=== PATIENT | female | born 1960 | race African-American/Black ===

== ENCOUNTER 2019-07-20 15:21 | Inpatient (IN) | payer MEDICARE, MEDICAID ==
[~2019-07-20] VITALS: Ht 165.1 cm; Wt 56.7 kg
[2019-07-20] MEDS ORDERED: PANTOPRAZOLE SODIUM 40 MG/VIAL IV STA (16:20)
[2019-07-20 18:30] LABS: BASOPHILS % 0.5 % (0.0-2.0); EOSINOPHILS % 0.6 % (0.0-5.0); HEMATOCRIT. 25.5 % (36.0-48.0); HEMOGLOBIN. 8.3 g/dL (12.0-16.0); LYMPHOCYTES % 14.7 % (20.0-50.0); MEAN CORPUSCULAR HEMOGLOBIN 30.1 pg (28.0-32.0); MEAN CORPUSCULAR VOLUME 93.2 fL (81.0-99.0); MEAN PLATELET VOLUME 8.2 fl (7.4-10.4); MONOCYTES % 7.1 % (2.0-8.0); NEUTROPHILS % 77.1 % (40.0-76.0); PLATELET 414 x1000/uL (130-400); RED BLOOD CELL COUNT 2.74 mill/uL (4.2-5.4); RED CELL DISTRIBUTION WIDTH 19.6 % (11.6-14.6)
[2019-07-20] MEDS ORDERED: HYDRALAZINE 20MG/ML VIAL IV ONE (18:30)
[2019-07-20 18:36] LABS: CHLORIDE 99 mEq/L (98-107); PROTHROMBIN TIME 10.5 sec (9.6-11.0)
[2019-07-20] MEDS ORDERED: ACETAMINOPHEN 325MG TABLET PO PRN (19:00)
[2019-07-20] MEDS ORDERED: DOCUSATE SODIUM 100MG CAPSULE PO PRN (19:00)
[2019-07-20] MEDS ORDERED: MAGNESIUM/ALUMINUM HYDROXIDE/SIMETHICONE 30ML UDC PO PRN (19:00)
[2019-07-20] MEDS ORDERED: ONDANSETRON HCL 4MG/2ML INJ IV PRN (19:00)
[2019-07-20] MEDS ORDERED: ZOLPIDEM TARTRATE 5MG TABLET PO PRN (19:00)
[2019-07-20] MEDS ORDERED: NITROGLYCERIN 0.4MG TABLET SL SL PRN (19:00)
[2019-07-20] MEDS ORDERED: IPRATROPIUM/ALBUTEROL 0.5-3(2.5)MG/3ML NEB NEB PRN (19:00)
[2019-07-20] MEDS ORDERED: LORAZEPAM 0.5MG TABLET PO PRN (19:00)
[2019-07-20] MEDS ORDERED: GUAIFENESIN 200MG/10ML SUGAR FREE UDC PO PRN (19:00)
[2019-07-20] MEDS ORDERED: TRAMADOL 50MG TABLET PO PRN (19:00)
[2019-07-20] MEDS ORDERED: DIPHENHYDRAMINE 50MG/ML VIAL IV PRN (19:00)
[2019-07-20] MEDS ORDERED: DEXTROSE 50% WATER 50ML SYRINGE IV PRN (19:00)
[2019-07-20 20:17] LABS: FOLIC ACID (FOLATE) SERUM 9.9 ng/mL (>5.38)
[2019-07-20] MEDS ORDERED: CLONIDINE 0.2MG TABLET PO PRN (20:30)
[2019-07-20] MEDS: PANTOPRAZOLE SODIUM 40 MG/VIAL IV SCH (20:56)
[2019-07-20] MEDS: METOPROLOL TARTRATE 25MG TABLET PO SCH (20:57)
[2019-07-20] MEDS: AMLODIPINE 10MG TABLET PO SCH (20:58)
[2019-07-20] MEDS: INSULIN LISPRO 100 UNITS/ML SUBCUT SCH (21:00)
[2019-07-20] MEDS: BLOOD SUGAR DIAGNOSTIC STRIP TEST SCH (21:00)
[2019-07-20 23:10] VITALS: BP 175/80
[2019-07-20 23:52] VITALS: BP 175/80
[2019-07-21] MEDS ORDERED: SEVE800T8 PO (00:21)
[2019-07-21] MEDS ORDERED: TRAM50TA3 PO (00:21)
[2019-07-21] MEDS ORDERED: LISI10TA5 PO (00:21)
[2019-07-21] MEDS ORDERED: AMLO10TA4 PO (00:21)
[2019-07-21] MEDS ORDERED: OMEP20TA2 PO (00:21)
[2019-07-21] MEDS: LISINOPRIL 20MG TABLET PO SCH ×3 (00:36→22:59)
[2019-07-21] MEDS: HYDRALAZINE HCL 50MG TABLET PO SCH ×4 (00:36→23:00)
[2019-07-21 04:00] VITALS: BP 120/64
[2019-07-21] MEDS: BLOOD SUGAR DIAGNOSTIC STRIP TEST SCH ×4 (05:47→23:00)
[2019-07-21 08:00] VITALS: BP 139/73
[2019-07-21] MEDS: INSULIN LISPRO 100 UNITS/ML SUBCUT SCH ×4 (08:10→23:07)
[2019-07-21] MEDS: SEVELAMER CARBONATE 800 MG TABLET PO SCH ×3 (08:19→17:50)
[2019-07-21] MEDS: FOLIC ACID/VITAMIN B COMP W-C TABLET PO SCH (08:20)
[2019-07-21] MEDS: AMLODIPINE 10MG TABLET PO SCH (08:20)
[2019-07-21] MEDS: METOPROLOL TARTRATE 25MG TABLET PO SCH ×2 (08:20→23:00)
[2019-07-21] MEDS: PANTOPRAZOLE SODIUM 40 MG/VIAL IV SCH ×2 (08:21→23:15)
[2019-07-21 11:50] VITALS: BP 131/85
[2019-07-21] MEDS: DOCUSATE SODIUM 100MG CAPSULE PO SCH (12:09)
[2019-07-21 16:00] VITALS: BP 132/68
[2019-07-21 20:00] VITALS: BP 142/66
[2019-07-21] MEDS ORDERED: EPOETIN ALFA 10000UNITS/ML VIAL SUBCUT SCH (21:00)
[2019-07-22] VITALS: BP 136/68
[2019-07-22 04:00] VITALS: BP 138/59
[2019-07-22 06:53] LABS: BASOPHILS % 0.4 % (0.0-2.0); EOSINOPHILS % 0.2 % (0.0-5.0); HEMATOCRIT. 23.7 % (36.0-48.0); HEMOGLOBIN. 7.7 g/dL (12.0-16.0); LYMPHOCYTES % 14.5 % (20.0-50.0); MEAN CORPUSCULAR HEMOGLOBIN 30.1 pg (28.0-32.0); MEAN CORPUSCULAR VOLUME 92.6 fL (81.0-99.0); MEAN PLATELET VOLUME 7.9 fl (7.4-10.4); MONOCYTES % 10.3 % (2.0-8.0); NEUTROPHILS % 74.6 % (40.0-76.0); PLATELET 402 x1000/uL (130-400); RED BLOOD CELL COUNT 2.56 mill/uL (4.2-5.4); RED CELL DISTRIBUTION WIDTH 19.7 % (11.6-14.6)
[2019-07-22] MEDS: BLOOD SUGAR DIAGNOSTIC STRIP TEST SCH ×3 (07:01→17:40)
[2019-07-22] MEDS: HYDRALAZINE HCL 50MG TABLET PO SCH ×2 (07:01→14:42)
[2019-07-22] MEDS: INSULIN LISPRO 100 UNITS/ML SUBCUT SCH ×3 (07:04→18:10)
[2019-07-22 07:05] LABS: PHOSPHORUS 3.7 mg/dL (2.5-4.9)
[2019-07-22] MEDS: LISINOPRIL 20MG TABLET PO SCH (08:34)
[2019-07-22] MEDS: FOLIC ACID/VITAMIN B COMP W-C TABLET PO SCH (08:34)
[2019-07-22] MEDS: DOCUSATE SODIUM 100MG CAPSULE PO SCH (08:34)
[2019-07-22] MEDS: PANTOPRAZOLE SODIUM 40 MG/VIAL IV SCH (08:34)
[2019-07-22] MEDS: METOPROLOL TARTRATE 25MG TABLET PO SCH (08:35)
[2019-07-22] MEDS: AMLODIPINE 10MG TABLET PO SCH (08:35)
[2019-07-22] MEDS: SEVELAMER CARBONATE 800 MG TABLET PO SCH ×3 (08:36→18:10)
[2019-07-22] MEDS ORDERED: DIATR MEGLU/DIATRIZOATE SOLN 30ML PO SCH (13:15)
[2019-07-22] MEDS ORDERED: POTASSIUM CHLORIDE INJ 40 MEQ in DEXT 5% WATER 250 ML IV NR (14:30)
[2019-07-22] MEDS ORDERED: LOSARTAN POTASSIUM 50 MG TABLET PO SCH (15:00)
[2019-07-22] MEDS ORDERED: HYDROCODONE/ACETAMINOPHEN 5/325MG TABLET PO PRN (15:15)
[2019-07-22] MEDS ORDERED: DIATR MEGLU/DIATRIZOATE SOLN 30ML PO NR (16:00)
[2019-07-22] MEDS ORDERED: FERROUS SULFATE 325MG TABLET PO SCH (18:10)
[2019-07-22] MEDS ORDERED: LISI-604 MT (18:16)
[2019-07-22] MEDS ORDERED: CLON0.2T MT (18:16)
[2019-07-22] MEDS ORDERED: FERR-71 MT (18:16)
[2019-07-22] MEDS ORDERED: LOSA25TA26 MT (18:16)
[2019-07-22] MEDS ORDERED: ATOR10TA MT (18:18)
[2019-07-22] MEDS ORDERED: POTASSIUM CHLORIDE 20MEQ TABLET SR PO NR (18:30)
[2019-07-22 20:38] VITALS: BP 142/85
== END 2019-07-22 20:48 | disposition home or self-care (01) | DRG 377 ==
LOC: ER 15:21 → SUPCPDRO 18:56 → ENRESERV 21:10 → 7WST 23:20 → EDBD 23:20
PROVIDERS: ADMIT Internal Medicine; ATTEND Internal Medicine
PROC: 5A1D70Z Performance of Urinary Filtration, Intermittent, Less than 6 Hours Per Day (ICD-10-PCS; principal; 2019-07-21)
DX: K92.2 Gastrointestinal hemorrhage, unspecified (principal); N18.6 End stage renal disease; E87.1 Hypo-osmolality and hyponatremia; E44.0 Moderate protein-calorie malnutrition; I12.0 Hypertensive chronic kidney disease with stage 5 chronic kidney disease or end stage renal disease; N25.81 Secondary hyperparathyroidism of renal origin; R18.8 Other ascites; K59.00 Constipation, unspecified; E78.5 Hyperlipidemia, unspecified; N32.89 Other specified disorders of bladder; E11.36 Type 2 diabetes mellitus with diabetic cataract; D25.9 Leiomyoma of uterus, unspecified; D63.8 Anemia in other chronic diseases classified elsewhere; E11.22 Type 2 diabetes mellitus with diabetic chronic kidney disease; Z53.20 Procedure and treatment not carried out because of patient's decision for unspecified reasons; Z83.3 Family history of diabetes mellitus; Z82.49 Family history of ischemic heart disease and other diseases of the circulatory system; Z79.4 Long term (current) use of insulin; Z79.899 Other long term (current) drug therapy; Z91.19 Patient's noncompliance with other medical treatment and regimen; Z99.2 Dependence on renal dialysis; Z72.89 Other problems related to lifestyle; Z68.20 Body mass index [BMI] 20.0-20.9, adult
CPT/HCPCS: 36415; 71045; 74018; 74176; 80048; 80053; 80061; 82607; 82728; 82746; 82962; 83036; 83540; 83550; 83735; 83880; 84100; 84484; 85025; 86850; 86870; 86900; 93005; 93306; 93970; 99285; C9113; J0360; J0885; J1815; J2405; J3480; J7060; Q9963

== ENCOUNTER 2019-09-08 00:49 | Inpatient (IN) | payer MEDICARE, MEDICAID ==
[~2019-09-08] VITALS: Ht 165.1 cm; Wt 56.2 kg
[~2019-09-08 00:49] MED LIST: AMLO10TA4 PO; ATOR10TA MT; CLON0.2T MT; FERR-71 MT; LISI-604 MT; LOSA25TA26 MT; OMEP20TA2 PO; SEVE800T8 PO; TRAM50TA3 PO
[2019-09-08 02:11] LABS: HEMATOCRIT. 26.3 % (36.0-48.0); HEMOGLOBIN. 8.7 g/dL (12.0-16.0); MEAN CORPUSCULAR HEMOGLOBIN 30.6 pg (28.0-32.0); MEAN CORPUSCULAR VOLUME 92.2 fL (81.0-99.0); PLATELET 258 x1000/uL (130-400); RED BLOOD CELL COUNT 2.85 mill/uL (4.2-5.4); RED CELL DISTRIBUTION WIDTH 17.1 % (11.6-14.6)
[2019-09-08 02:17] LABS: CHLORIDE 106 mEq/L (98-107)
[2019-09-08 02:51] LABS: PLATELET ESTIMATE NORMAL
[2019-09-08 04:03] LABS: CLARITY URINE CLEAR (CLEAR); COLOR URINE YELLOW (YELLOW); KETONES URINE NEGATIVE (NEGATIVE); LEUKOCYTE ESTERASE URINE NEGATIVE (NEGATIVE); NITRITE URINE NEGATIVE (NEGATIVE); OCCULT BLOOD URINE TRACE (NEGATIVE); PH URINE >=9.0 (4.5-8.0); PROTEIN URINE 2+ (NEGATIVE); SPECIFIC GRAVITY URINE 1.012 (1.005-1.030); UROBILINOGEN URINE 0.2 E.U./dL (0.2-1.0)
[2019-09-08 08:30] VITALS: BP_SYST 196; BP_DIAS 100; BP_DIAS 110
[2019-09-08] MEDS ORDERED: GUAIFENESIN 200MG/10ML SUGAR FREE UDC PO PRN (09:30)
[2019-09-08] MEDS ORDERED: ONDANSETRON HCL 4MG/2ML INJ IV PRN (09:30)
[2019-09-08] MEDS ORDERED: MAGNESIUM/ALUMINUM HYDROXIDE/SIMETHICONE 30ML UDC PO PRN (09:30)
[2019-09-08] MEDS ORDERED: IPRATROPIUM/ALBUTEROL 0.5-3(2.5)MG/3ML NEB NEB PRN (09:30)
[2019-09-08] MEDS ORDERED: CLONIDINE 0.1MG TABLET PO PRN (09:30)
[2019-09-08] MEDS ORDERED: TRAMADOL 50MG TABLET PO PRN (09:30)
[2019-09-08] MEDS ORDERED: DOCUSATE SODIUM 100MG CAPSULE PO PRN (09:30)
[2019-09-08] MEDS ORDERED: NITROGLYCERIN 0.4MG TABLET SL SL PRN (09:30)
[2019-09-08] MEDS ORDERED: ENOXAPARIN 40MG/0.4ML SYR SUBCUT SCH (09:30)
[2019-09-08] MEDS ORDERED: ACETAMINOPHEN 325MG TABLET PO PRN ×2 (09:30)
[2019-09-08] MEDS ORDERED: DIPHENHYDRAMINE 50MG/ML VIAL IV PRN (09:30)
[2019-09-08] MEDS ORDERED: ZOLPIDEM TARTRATE 5MG TABLET PO PRN ×2 (09:30→21:00)
[2019-09-08] MEDS ORDERED: AMLODIPINE 10MG TABLET PO SCH (10:00)
[2019-09-08] MEDS: ASPIRIN 325MG EC TABLET PO SCH (10:35)
[2019-09-08] MEDS: ENOXAPARIN 30MG/0.3ML SYR SUBCUT SCH (10:36)
[2019-09-08 12:19] VITALS: BP 156/84
[2019-09-08] MEDS ORDERED: SEVELAMER CARBONATE 800 MG TABLET PO SCH (12:50)
[2019-09-08] MEDS ORDERED: HYDRALAZINE HCL 50MG TABLET PO SCH (14:00)
[2019-09-08] MEDS: CLONIDINE 0.2MG TABLET PO SCH ×2 (14:00→20:50)
[2019-09-08] MEDS ORDERED: CLONIDINE 0.3MG TABLET PO SCH (14:00)
[2019-09-08 16:06] VITALS: BP 159/85
[2019-09-08 16:09] LABS: CREATINE KINASE MB FRACTION 3.2 ng/mL (0.5-3.6)
[2019-09-08 20:46] VITALS: BP 161/79
[2019-09-08] MEDS ORDERED: NIFEDIPINE XL 60MG TAB PO SCH (21:00)
[2019-09-08] MEDS ORDERED: FAMOTIDINE 20MG TABLET PO SCH (21:00)
[2019-09-08] MEDS ORDERED: LISINOPRIL 20MG TABLET PO SCH (21:00)
[2019-09-08] MEDS ORDERED: METOPROLOL TARTRATE 25MG TABLET PO SCH (21:00)
[2019-09-09] VITALS (7 sets, daily range): BP systolic 132–162; BP diastolic 68–86
[2019-09-09 00:34] LABS: CREATINE KINASE MB FRACTION 2.5 ng/mL (0.5-3.6)
[2019-09-09] MEDS: CLONIDINE 0.2MG TABLET PO SCH ×2 (05:45→14:00)
[2019-09-09 07:11] LABS: BASOPHILS % 0.6 % (0.0-2.0); EOSINOPHILS % 0.1 % (0.0-5.0); HEMATOCRIT. 24.7 % (36.0-48.0); HEMOGLOBIN. 8.3 g/dL (12.0-16.0); LYMPHOCYTES % 17.4 % (20.0-50.0); MEAN CORPUSCULAR HEMOGLOBIN 31.1 pg (28.0-32.0); MEAN CORPUSCULAR VOLUME 92.7 fL (81.0-99.0); MEAN PLATELET VOLUME 8.8 fl (7.4-10.4); MONOCYTES % 8.8 % (2.0-8.0); NEUTROPHILS % 73.1 % (40.0-76.0); PLATELET 283 x1000/uL (130-400); RED BLOOD CELL COUNT 2.66 mill/uL (4.2-5.4); RED CELL DISTRIBUTION WIDTH 16.5 % (11.6-14.6)
[2019-09-09 08:14] LABS: PHOSPHORUS 3.1 mg/dL (2.5-4.9)
[2019-09-09] MEDS: ASPIRIN 325MG EC TABLET PO SCH (09:34)
[2019-09-09] MEDS: ENOXAPARIN 30MG/0.3ML SYR SUBCUT SCH (09:35)
[2019-09-09 16:28] LABS: BG BASE EXCESS -0.3 mmol/L (-2.0-2.0); BG CARBOXYHEMOGLOBIN 0.3 % (0.5-1.5); BG DEOXYHEMOGLOBIN 7.9 % (0.0-5.0); BG HCO3 ACT 22.6 mmol/L (22.0-26.0); BG METHEMOGLOBIN 0.3 % (0.0-1.5); BG OXYGEN SATURATION 92.1 % (92.0-98.5); BG OXYHEMOGLOBIN 91.5 % (94.0-97.0); BG PCO2 30.5 mmHg (35.0-45.0); BG PH 7.488 (7.350-7.450); BG SAMPLE SITE RIGHT RADIAL; BG TOTAL HEMOGLOBIN 9.2 g/dL (12.0-18.0); BG VENT MODE ROOM AIR
== END 2019-09-09 19:00 | disposition home or self-care (01) | DRG 291 ==
LOC: ER 01:08 → 6WST 06:52 → ENRESERV 07:38 → CANRESERV 07:38 → ENRESERV 08:05
PROVIDERS: ADMIT Internal Medicine; ATTEND Internal Medicine
PROC: 5A1D70Z Performance of Urinary Filtration, Intermittent, Less than 6 Hours Per Day (ICD-10-PCS; principal; 2019-09-08)
PROC: 5A1D70Z Performance of Urinary Filtration, Intermittent, Less than 6 Hours Per Day (ICD-10-PCS; 2019-09-09)
DX: I13.2 Hypertensive heart and chronic kidney disease with heart failure and with stage 5 chronic kidney disease, or end stage renal disease (principal); J96.00 Acute respiratory failure, unspecified whether with hypoxia or hypercapnia; N18.6 End stage renal disease; I50.33 Acute on chronic diastolic (congestive) heart failure; D25.9 Leiomyoma of uterus, unspecified; E11.22 Type 2 diabetes mellitus with diabetic chronic kidney disease; F10.10 Alcohol abuse, uncomplicated; F17.210 Nicotine dependence, cigarettes, uncomplicated; J44.9 Chronic obstructive pulmonary disease, unspecified; F32.9 Major depressive disorder, single episode, unspecified; K21.9 Gastro-esophageal reflux disease without esophagitis; Z82.49 Family history of ischemic heart disease and other diseases of the circulatory system; Y90.9 Presence of alcohol in blood, level not specified; Z91.15 Patient's noncompliance with renal dialysis; Z83.3 Family history of diabetes mellitus; Z91.14 Patient's other noncompliance with medication regimen; Z99.2 Dependence on renal dialysis; Z79.1 Long term (current) use of non-steroidal anti-inflammatories (NSAID); Z79.82 Long term (current) use of aspirin; Z79.01 Long term (current) use of anticoagulants; Z79.899 Other long term (current) drug therapy; Z71.6 Tobacco abuse counseling
CPT/HCPCS: 36415; 36600; 71045; 80048; 80053; 80307; 81003; 82375; 82550; 82553; 82805; 83036; 84100; 84484; 85025; 93005; 93970; 99285; J1650

== ENCOUNTER 2019-09-22 07:18 | Inpatient (IN) | payer MEDICARE, MEDICAID ==
[~2019-09-22] VITALS: Ht 170.2 cm; Wt 54.0 kg
[2019-09-22] MEDS ORDERED: ALBUTEROL (0.083%) 2.5MG/3ML NEB HHN STA (07:44)
[2019-09-22] MEDS ORDERED: METHYLPREDNISOLONE SOD SUCC 125 MG/2 ML VIAL IV STA (07:44)
[2019-09-22] MEDS ORDERED: NITROGLYCERIN 0.4MG TABLET SL SL PRN (07:45)
[2019-09-22 08:47] LABS: MEAN CORPUSCULAR HEMOGLOBIN 29.5 pg (28.0-32.0); MEAN CORPUSCULAR VOLUME 94.8 fL (81.0-99.0); MEAN PLATELET VOLUME 8.5 fl (7.4-10.4); PLATELET 296 x1000/uL (130-400); RED BLOOD CELL COUNT 2.22 mill/uL (4.2-5.4); RED CELL DISTRIBUTION WIDTH 17.4 % (11.6-14.6)
[2019-09-22 08:55] LABS: HEMOGLOBIN. 6.6 g/dL (12.0-16.0)
[2019-09-22 09:38] LABS: CHLORIDE 120 mEq/L (98-107)
[2019-09-22 09:56] LABS: PLATELET ESTIMATE NORMAL
[2019-09-22] MEDS ORDERED: INSULIN REGULAR (HUMULIN R) 300UNITS/3ML IV ONE (11:15)
[2019-09-22] MEDS ORDERED: DEXTROSE 50% WATER 50ML SYRINGE IV ONE (11:15)
[2019-09-22] MEDS ORDERED: CALCIUM GLUCONATE 1,000 MG in DEXT 5% WATER 100 ML IV ONE (11:15)
[2019-09-22] MEDS ORDERED: SODIUM POLYSTYRENE SULFONATE 15 G/60 ML BOT PO ONE (11:15)
[2019-09-22 14:30] VITALS: BP 87/55
[2019-09-22 15:30] VITALS: BP 87/55
[2019-09-22] MEDS ORDERED: ACETAMINOPHEN 325MG TABLET PO PRN (16:30)
[2019-09-22] MEDS ORDERED: ONDANSETRON HCL 4MG/2ML INJ IV PRN (16:30)
[2019-09-22] MEDS ORDERED: IPRATROPIUM/ALBUTEROL 0.5-3(2.5)MG/3ML NEB HHN PRN (16:30)
[2019-09-22] MEDS ORDERED: ENOXAPARIN 40MG/0.4ML SYR SUBCUT SCH (16:30)
[2019-09-22 20:00] VITALS: BP 161/89
[2019-09-22] MEDS: EPOETIN ALFA 10000UNITS/ML VIAL SUBCUT SCH (21:21)
[2019-09-23] VITALS (8 sets, daily range): BP systolic 123–177; BP diastolic 63–90
[2019-09-23 00:08] LABS: BASOPHILS % 0.3 % (0.0-2.0); MEAN CORPUSCULAR HEMOGLOBIN 31.1 pg (28.0-32.0); MEAN CORPUSCULAR VOLUME 93.5 fL (81.0-99.0); MEAN PLATELET VOLUME 8.6 fl (7.4-10.4); NEUTROPHILS % 83.7 % (40.0-76.0); PLATELET 266 x1000/uL (130-400); RED BLOOD CELL COUNT 2.23 mill/uL (4.2-5.4); RED CELL DISTRIBUTION WIDTH 16.5 % (11.6-14.6)
[2019-09-23 00:21] LABS: HEMATOCRIT. 20.8 % (36.0-48.0); HEMOGLOBIN. 6.9 g/dL (12.0-16.0)
[2019-09-23] MEDS ORDERED: DEXTROSE 50% WATER 50ML SYRINGE IV PRN (06:00)
[2019-09-23] MEDS: INSULIN LISPRO 100 UNITS/ML SUBCUT SCH ×3 (06:50→21:00)
[2019-09-23] MEDS: BLOOD SUGAR DIAGNOSTIC STRIP TEST SCH ×3 (06:50→21:14)
[2019-09-23 07:26] LABS: HEMATOCRIT. 25.9 % (36.0-48.0); HEMOGLOBIN. 8.9 g/dL (12.0-16.0); MEAN CORPUSCULAR HEMOGLOBIN 31.1 pg (28.0-32.0); MEAN PLATELET VOLUME 8.6 fl (7.4-10.4); PLATELET 269 x1000/uL (130-400); RED BLOOD CELL COUNT 2.88 mill/uL (4.2-5.4); RED CELL DISTRIBUTION WIDTH 15.8 % (11.6-14.6)
[2019-09-23 07:41] LABS: CHLORIDE 113 mEq/L (98-107)
[2019-09-23 07:53] LABS: LDL CHOLESTEROL 87 mg/dL (5-100)
[2019-09-23 07:54] LABS: HDL CHOLESTEROL 83 mg/dL (40-59); T4 FREE 0.99 ng/dL (0.76-1.46)
[2019-09-23 10:46] LABS: PLATELET ESTIMATE NORMAL
[2019-09-23] MEDS ORDERED: POTASSIUM CHLORIDE 20MEQ/PACKET PO SCH (15:00)
[2019-09-23] MEDS: HYDROCODONE/ACETAMINOPHEN 5/325MG TABLET PO PRN (22:45)
[2019-09-23] MEDS: DIPHENHYDRAMINE 25MG CAPSULE PO PRN (22:49)
[2019-09-24] VITALS: BP 133/88
[2019-09-24 04:00] VITALS: BP 140/71
[2019-09-24] MEDS: BLOOD SUGAR DIAGNOSTIC STRIP TEST SCH ×4 (06:11→21:02)
[2019-09-24] MEDS: INSULIN LISPRO 100 UNITS/ML SUBCUT SCH ×4 (06:16→21:01)
[2019-09-24 06:39] LABS: BASOPHILS % 0.1 % (0.0-2.0); EOSINOPHILS % 0.1 % (0.0-5.0); HEMATOCRIT. 28.1 % (36.0-48.0); HEMOGLOBIN. 9.4 g/dL (12.0-16.0); LYMPHOCYTES % 8.9 % (20.0-50.0); MEAN CORPUSCULAR HEMOGLOBIN 30.4 pg (28.0-32.0); MEAN CORPUSCULAR VOLUME 90.9 fL (81.0-99.0); MEAN PLATELET VOLUME 8.7 fl (7.4-10.4); MONOCYTES % 6.6 % (2.0-8.0); NEUTROPHILS % 84.3 % (40.0-76.0); PLATELET 252 x1000/uL (130-400); RED BLOOD CELL COUNT 3.09 mill/uL (4.2-5.4); RED CELL DISTRIBUTION WIDTH 16.2 % (11.6-14.6)
[2019-09-24 08:00] VITALS: BP 149/73
[2019-09-24] MEDS ORDERED: POTASSIUM CHLORIDE 20MEQ/PACKET PO SCH (10:15)
[2019-09-24 12:00] VITALS: BP 159/81
[2019-09-24 16:00] VITALS: BP 170/79
[2019-09-24 20:00] VITALS: BP 165/86
[2019-09-24] MEDS: HYDROCODONE/ACETAMINOPHEN 5/325MG TABLET PO PRN (20:46)
[2019-09-24] MEDS: DIPHENHYDRAMINE 25MG CAPSULE PO PRN (21:01)
[2019-09-24] MEDS: CLONIDINE 0.1MG TABLET PO PRN (21:02)
[2019-09-25] VITALS: BP 142/79
[2019-09-25 04:00] VITALS: BP 139/75
[2019-09-25] MEDS: INSULIN LISPRO 100 UNITS/ML SUBCUT SCH ×4 (05:42→21:00)
[2019-09-25] MEDS: BLOOD SUGAR DIAGNOSTIC STRIP TEST SCH ×4 (05:42→21:00)
[2019-09-25 06:42] LABS: BASOPHILS % 0.3 % (0.0-2.0); EOSINOPHILS % 0.2 % (0.0-5.0); HEMATOCRIT. 25.2 % (36.0-48.0); HEMOGLOBIN. 8.4 g/dL (12.0-16.0); LYMPHOCYTES % 11.7 % (20.0-50.0); MEAN CORPUSCULAR HEMOGLOBIN 30.8 pg (28.0-32.0); MEAN CORPUSCULAR VOLUME 92.2 fL (81.0-99.0); MEAN PLATELET VOLUME 8.6 fl (7.4-10.4); MONOCYTES % 9.8 % (2.0-8.0); PLATELET 223 x1000/uL (130-400); RED BLOOD CELL COUNT 2.73 mill/uL (4.2-5.4); RED CELL DISTRIBUTION WIDTH 16.4 % (11.6-14.6)
[2019-09-25 08:30] VITALS: BP 158/68
[2019-09-25] MEDS ORDERED: LACTULOSE 20G/30ML UDC PO NR (11:45)
[2019-09-25] MEDS ORDERED: POTASSIUM CHLORIDE 20MEQ TABLET SR PO NR (11:45)
[2019-09-25 12:30] VITALS: BP 175/88
[2019-09-25] MEDS: CLONIDINE 0.1MG TABLET PO PRN (12:57)
[2019-09-25 14:51] LABS: TOTAL IRON BINDING CAPACITY 225 ug/dL (250-450)
[2019-09-25 16:23] LABS: HEMATOCRIT 26.7 % (36.0-48.0); HEMOGLOBIN 8.6 g/dL (12.0-16.0)
[2019-09-25 16:27] LABS: BG BASE EXCESS -3.1 mmol/L (-2.0-2.0); BG CARBOXYHEMOGLOBIN 0.3 % (0.5-1.5); BG DEOXYHEMOGLOBIN 7.7 % (0.0-5.0); BG FRACTION INSPIRED OXYGEN 21; BG HCO3 ACT 20.3 mmol/L (22.0-26.0); BG METHEMOGLOBIN 0.3 % (0.0-1.5); BG OXYGEN SATURATION 92.3 % (92.0-98.5); BG OXYHEMOGLOBIN 91.7 % (94.0-97.0); BG PCO2 29.7 mmHg (35.0-45.0); BG PH 7.452 (7.350-7.450); BG PO2 63.3 mmHg (75.0-100.0); BG SAMPLE SITE RIGHT BRACHIAL; BG TOTAL HEMOGLOBIN 8.4 g/dL (12.0-18.0); BG VENT MODE ROOM AIR
[2019-09-25 20:00] VITALS: BP 169/91
[2019-09-25] MEDS: PANTOPRAZOLE SODIUM 40 MG/VIAL IV SCH (21:51)
[2019-09-25] MEDS: EPOETIN ALFA 10000UNITS/ML VIAL SUBCUT SCH (21:52)
[2019-09-26] VITALS (7 sets, daily range): BP systolic 143–193; BP diastolic 79–115
[2019-09-26 06:44] LABS: PARTIAL THROMBOPLASTIN TIME 28.6 sec (23.4-31.0); PROTHROMBIN TIME 10.5 sec (9.6-11.0)
[2019-09-26 06:47] LABS: BASOPHILS % 0.5 % (0.0-2.0); EOSINOPHILS % 0.2 % (0.0-5.0); HEMATOCRIT. 25.2 % (36.0-48.0); HEMOGLOBIN. 8.2 g/dL (12.0-16.0); LYMPHOCYTES % 8.3 % (20.0-50.0); MEAN CORPUSCULAR HEMOGLOBIN 30.2 pg (28.0-32.0); MEAN CORPUSCULAR VOLUME 92.5 fL (81.0-99.0); MEAN PLATELET VOLUME 8.8 fl (7.4-10.4); PLATELET 217 x1000/uL (130-400); RED BLOOD CELL COUNT 2.73 mill/uL (4.2-5.4); RED CELL DISTRIBUTION WIDTH 16.1 % (11.6-14.6)
[2019-09-26] MEDS: PANTOPRAZOLE SODIUM 40 MG/VIAL IV SCH ×2 (08:08→21:40)
[2019-09-26] MEDS: INSULIN LISPRO 100 UNITS/ML SUBCUT SCH ×4 (08:10→21:40)
[2019-09-26] MEDS: BLOOD SUGAR DIAGNOSTIC STRIP TEST SCH ×4 (08:17→21:40)
[2019-09-26 08:37] LABS: HEPATITIS A AB IGM NEGATIVE (NEGATIVE)
[2019-09-26 08:58] LABS: HEPATITIS B SURFACE ANTIGEN NEGATIVE
[2019-09-26] MEDS ORDERED: FERR325T23 MT (11:50)
[2019-09-26] MEDS ORDERED: OMEP20CA14 MT (11:50)
[2019-09-26] MEDS: HYDRALAZINE 20MG/ML VIAL IV PRN (16:27)
[2019-09-26] MEDS: DIPHENHYDRAMINE 25MG CAPSULE PO PRN (23:51)
[2019-09-27] VITALS: BP 168/71
[2019-09-27 04:00] VITALS: BP 182/90
[2019-09-27] MEDS: BLOOD SUGAR DIAGNOSTIC STRIP TEST SCH ×2 (07:04→12:39)
[2019-09-27] MEDS: INSULIN LISPRO 100 UNITS/ML SUBCUT SCH ×2 (07:04→12:43)
[2019-09-27] MEDS: PANTOPRAZOLE SODIUM 40 MG/VIAL IV SCH (08:18)
[2019-09-27 08:30] VITALS: BP 183/82
[2019-09-27] MEDS: HYDRALAZINE 20MG/ML VIAL IV PRN (09:21)
[2019-09-27] MEDS ORDERED: HYDRALAZINE HCL 50MG TABLET PO SCH ×2 (11:00→17:00)
[2019-09-27] MEDS ORDERED: LOSARTAN POTASSIUM 25 MG TABLET PO SCH (11:00)
[2019-09-27 12:00] VITALS: BP 167/75
[2019-09-27 12:10] LABS: HEMATOCRIT 27.9 % (36.0-48.0); HEMOGLOBIN 9.5 g/dL (12.0-16.0)
[2019-09-27 14:31] VITALS: BP 152/75
== END 2019-09-27 15:15 | disposition home or self-care (01) | DRG 377 ==
LOC: ER 07:18 → 7WST 09:15 → ENRESERV 13:16 → CANRESERV 13:16 → ENRESERV 13:30 → 7WST 15:20
PROVIDERS: ADMIT Internal Medicine; ATTEND Internal Medicine
PROC: 30233N1 Transfusion of Nonautologous Red Blood Cells into Peripheral Vein, Percutaneous Approach (ICD-10-PCS; principal; 2019-09-22)
DX: K92.2 Gastrointestinal hemorrhage, unspecified (principal); N18.6 End stage renal disease; I50.33 Acute on chronic diastolic (congestive) heart failure; I13.2 Hypertensive heart and chronic kidney disease with heart failure and with stage 5 chronic kidney disease, or end stage renal disease; I16.0 Hypertensive urgency; D64.9 Anemia, unspecified; E11.22 Type 2 diabetes mellitus with diabetic chronic kidney disease; E87.6 Hypokalemia; F17.210 Nicotine dependence, cigarettes, uncomplicated; J44.9 Chronic obstructive pulmonary disease, unspecified; Z99.2 Dependence on renal dialysis; E78.5 Hyperlipidemia, unspecified; I07.1 Rheumatic tricuspid insufficiency; I27.20 Pulmonary hypertension, unspecified; I37.1 Nonrheumatic pulmonary valve insufficiency; Z91.19 Patient's noncompliance with other medical treatment and regimen; D25.9 Leiomyoma of uterus, unspecified
CPT/HCPCS: 36415; 36600; 71045; 80048; 80053; 80061; 82375; 82805; 82962; 82977; 83036; 83540; 83550; 83735; 83880; 84439; 84443; 84484; 85014; 85018; 85025; 85044; 86705; 86709; 86803; 86850; 86870; 86900; 86920; 87340; 93005; 94618; 94640; 97162; 99291; C9113; J0360; J0610; J0885; J1815; J2930; J7060; P9016; Q0163

== ENCOUNTER 2019-10-10 01:40 | Emergency (ER) | payer MEDICARE, MEDICAID ==
[~2019-10-10] VITALS: Ht 162.6 cm; Wt 60.0 kg
[~2019-10-10 01:40] MED LIST changes: +FERR325T23 MT; -LISI-604 MT; +OMEP20CA14 MT
[2019-10-10] MEDS ORDERED: FUROSEMIDE 100MG/10ML VIAL IVP ONE (02:15)
[2019-10-10 02:29] VITALS: BP 228/110
[2019-10-10 02:34] LABS: BASOPHILS % 0.5 % (0.0-2.0); EOSINOPHILS % 0.1 % (0.0-5.0); HEMATOCRIT. 22.8 % (36.0-48.0); HEMOGLOBIN. 7.4 g/dL (12.0-16.0); LYMPHOCYTES % 10.6 % (20.0-50.0); MEAN CORPUSCULAR HEMOGLOBIN 31.5 pg (28.0-32.0); MEAN CORPUSCULAR VOLUME 96.6 fL (81.0-99.0); MEAN PLATELET VOLUME 7.9 fl (7.4-10.4); NEUTROPHILS % 81.8 % (40.0-76.0); PLATELET 313 x1000/uL (130-400); RED BLOOD CELL COUNT 2.36 mill/uL (4.2-5.4); RED CELL DISTRIBUTION WIDTH 18.2 % (11.6-14.6)
[2019-10-10 02:37] LABS: CHLORIDE 114 mEq/L (98-107)
[2019-10-10] MEDS ORDERED: ASPIRIN 325MG TABLET PO NR (03:30)
== END 2019-10-10 03:59 | disposition home or self-care (01) ==
LOC: ER 01:40
DX: R06.02 Shortness of breath (principal); I12.0 Hypertensive chronic kidney disease with stage 5 chronic kidney disease or end stage renal disease; N18.6 End stage renal disease; I11.0 Hypertensive heart disease with heart failure; J44.9 Chronic obstructive pulmonary disease, unspecified; Z79.899 Other long term (current) drug therapy; Z99.81 Dependence on supplemental oxygen
CPT/HCPCS: 36415; 71045; 80053; 83880; 84484; 85025; 93005; 99285; J1940

== ENCOUNTER 2020-01-12 07:10 | Inpatient (IN) | payer MEDICARE, MEDICAID ==
[~2020-01-12] VITALS: Ht 157.5 cm; Wt 53.1 kg
[2020-01-12] MEDS ORDERED: ASPIRIN 81MG TABLET PO ONE (07:45)
[2020-01-12] MEDS ORDERED: NITROGLYCERIN 0.4MG TABLET SL SL PRN (07:45)
[2020-01-12 08:43] LABS: EOSINOPHILS % 0.2 % (0.0-5.0); HEMATOCRIT. 25.2 % (36.0-48.0); HEMOGLOBIN. 8.1 g/dL (12.0-16.0); LYMPHOCYTES % 7.7 % (20.0-50.0); MEAN CORPUSCULAR HEMOGLOBIN 29.4 pg (28.0-32.0); MEAN CORPUSCULAR VOLUME 91.2 fL (81.0-99.0); MEAN PLATELET VOLUME 8.1 fl (7.4-10.4); MONOCYTES % 5.7 % (2.0-8.0); NEUTROPHILS % 85.4 % (40.0-76.0); PLATELET 353 x1000/uL (130-400); RED BLOOD CELL COUNT 2.76 mill/uL (4.2-5.4); RED CELL DISTRIBUTION WIDTH 17.5 % (11.6-14.6)
[2020-01-12] MEDS ORDERED: NITROGLYCERIN 50MG PREMIX 250 ML IV ONE (08:45)
[2020-01-12 08:51] LABS: CHLORIDE 116 mEq/L (98-107)
[2020-01-12] MEDS ORDERED: INSULIN REGULAR (HUMULIN R) 300UNITS/3ML IV ONE (09:15)
[2020-01-12] MEDS ORDERED: SODIUM BICARBONATE 8.4% 1 MEQ/ML 50ML SYR IV ONE (09:15)
[2020-01-12] MEDS ORDERED: CALCIUM GLUCONATE 1,000 MG in DEXT 5% WATER 100 ML IV ONE (09:15)
[2020-01-12] MEDS ORDERED: DEXTROSE 50% WATER 50ML SYRINGE IV ONE (09:15)
[2020-01-12 09:27] LABS: BG BASE EXCESS -13.7 mmol/L (-2.0-2.0); BG CARBOXYHEMOGLOBIN 0.8 % (0.5-1.5); BG DEOXYHEMOGLOBIN 21.4 % (0.0-5.0); BG FRACTION INSPIRED OXYGEN 36; BG HCO3 ACT 12.6 mmol/L (22.0-26.0); BG METHEMOGLOBIN 0.3 % (0.0-1.5); BG OXYGEN SATURATION 78.4 % (92.0-98.5); BG OXYHEMOGLOBIN 77.5 % (94.0-97.0); BG PCO2 30.6 mmHg (35.0-45.0); BG PH 7.233 (7.350-7.450); BG PO2 52.5 mmHg (75.0-100.0); BG SAMPLE SITE RIGHT RADIAL; BG TOTAL HEMOGLOBIN 8.2 g/dL (12.0-18.0); BG VENT MODE NASAL CANNULA
[2020-01-12] MEDS ORDERED: MIDAZOLAM HCL 2 MG/2 ML VIAL IV ONE (11:00)
[2020-01-12] MEDS ORDERED: MIDAZOLAM HCL 50 MG in DEXTROSE 5% WATER 40 ML IV ONE (11:00)
[2020-01-12] MEDS ORDERED: VECURONIUM BROMIDE 10 MG/VIAL IV ONE (11:00)
[2020-01-12] MEDS ORDERED: ETOMIDATE 2MG/ML 10ML VIAL IV ONE (11:00)
[2020-01-12] MEDS ORDERED: LORAZEPAM 0.5MG TABLET PO PRN (11:15)
[2020-01-12] MEDS ORDERED: MAGNESIUM/ALUMINUM HYDROXIDE/SIMETHICONE 30ML UDC PO PRN (11:15)
[2020-01-12] MEDS ORDERED: CLONIDINE 0.1MG TABLET PO PRN (11:15)
[2020-01-12] MEDS ORDERED: ACETAMINOPHEN 650MG SUPP PR PRN (11:15)
[2020-01-12] MEDS ORDERED: PIPERACILLIN/TAZOBACTAM 2.25 G in DEXTROSE 5% WATER 50 ML IV SCH ×2 (11:15→14:00)
[2020-01-12] MEDS ORDERED: IPRATROPIUM/ALBUTEROL 0.5-3(2.5)MG/3ML NEB NEB PRN (11:15)
[2020-01-12] MEDS ORDERED: ACETAMINOPHEN 325MG TABLET PO PRN (11:15)
[2020-01-12] MEDS ORDERED: NA PHOS,M-B/NA PHOS,DI-BA ENEMA 118ML PR PRN (11:15)
[2020-01-12] MEDS ORDERED: MIDAZOLAM HCL 100 MG in DEXT 5% WATER 80 ML IV NR (11:30)
[2020-01-12] MEDS ORDERED: PROPOFOL 10MG/ML 100ML 100 ML IV PRN (11:30)
[2020-01-12] MEDS ORDERED: VANCOMYCIN 1500MG in DEXTROSE 5% WATER 250ML IV SCH (12:00)
[2020-01-12] MEDS ORDERED: LIDOCAINE HCL 1% 20ML VIAL (Pyxis) INJ ONE (13:27)
[2020-01-12 14:41] LABS: CREATINE KINASE MB FRACTION 8.3 ng/mL (0.5-3.6)
[2020-01-12] MEDS: METHYLPREDNISOLONE SOD SUCC 40 MG/ML VIAL IV SCH (15:00)
[2020-01-12] MEDS: LOSARTAN POTASSIUM 50 MG TABLET PO SCH (15:00)
[2020-01-12] MEDS ORDERED: DEXTROSE 50% WATER 50ML SYRINGE IV PRN (15:00)
[2020-01-12] MEDS: BUDESONIDE 0.5MG/2ML NEB HHN SCH (15:00)
[2020-01-12] MEDS: AMLODIPINE 5MG TABLET PO SCH (15:00)
[2020-01-12 15:23] LABS: BG BASE EXCESS -13.5 mmol/L (-2.0-2.0); BG CARBOXYHEMOGLOBIN 0.3 % (0.5-1.5); BG DEOXYHEMOGLOBIN 4.3 % (0.0-5.0); BG FRACTION INSPIRED OXYGEN 100; BG HCO3 ACT 13.2 mmol/L (22.0-26.0); BG METHEMOGLOBIN 0.4 % (0.0-1.5); BG OXYGEN SATURATION 95.7 % (92.0-98.5); BG PCO2 33.8 mmHg (35.0-45.0); BG PH 7.211 (7.350-7.450); BG PO2 102.8 mmHg (75.0-100.0); BG SAMPLE SITE RIGHT BRACHIAL; BG TIDAL VOLUME(mL) 450 mL; BG TOTAL HEMOGLOBIN 7.8 g/dL (12.0-18.0); BG VENT MODE VENT - A/C; BG VENT RATE 16 set
[2020-01-12 16:31] LABS: CHLORIDE 114 mEq/L (98-107)
[2020-01-12 16:32] LABS: INR 1.1; PROTHROMBIN TIME 11.1 sec (9.6-11.0)
[2020-01-12] MEDS ORDERED: SODIUM BICARBONATE 8.4% 1 MEQ/ML 50ML SYR IV NR ×2 (17:00)
[2020-01-12] MEDS: BLOOD SUGAR DIAGNOSTIC STRIP TEST SCH ×2 (17:00→21:31)
[2020-01-12 18:20] LABS: BG CARBOXYHEMOGLOBIN 0.3 % (0.5-1.5); BG DEOXYHEMOGLOBIN 11.3 % (0.0-5.0); BG FRACTION INSPIRED OXYGEN 90; BG HCO3 ACT 16.4 mmol/L (22.0-26.0); BG METHEMOGLOBIN 0.5 % (0.0-1.5); BG OXYGEN SATURATION 88.6 % (92.0-98.5); BG OXYHEMOGLOBIN 87.9 % (94.0-97.0); BG PCO2 38.6 mmHg (35.0-45.0); BG PH 7.247 (7.350-7.450); BG PO2 65.2 mmHg (75.0-100.0); BG SAMPLE SITE RIGHT RADIAL; BG TIDAL VOLUME(mL) 450 mL; BG TOTAL HEMOGLOBIN 8.1 g/dL (12.0-18.0); BG VENT MODE VENT - A/C; BG VENT RATE 16 set
[2020-01-12] MEDS: IPRATROPIUM/ALBUTEROL 0.5-3(2.5)MG/3ML NEB HHN SCH (20:50)
[2020-01-12 22:45] VITALS: BP 141/82
[2020-01-12 23:00] VITALS: BP_SYST 148; BP_SYST 162; BP_DIAS 72; BP_DIAS 98
[2020-01-12 23:15] VITALS: BP 145/92
[2020-01-12 23:30] VITALS: BP 137/89
[2020-01-12 23:45] VITALS: BP 137/71
[2020-01-13] VITALS (60 sets, daily range): BP systolic 100–190; BP diastolic 27–120
[2020-01-13] MEDS: METHYLPREDNISOLONE SOD SUCC 40 MG/ML VIAL IV SCH ×4 (00:13→22:32)
[2020-01-13] MEDS: HYDRALAZINE HCL 50MG TABLET PO SCH ×4 (00:13→21:22)
[2020-01-13] MEDS: BUDESONIDE 0.5MG/2ML NEB HHN SCH ×3 (00:30→20:36)
[2020-01-13] MEDS: IPRATROPIUM/ALBUTEROL 0.5-3(2.5)MG/3ML NEB HHN SCH ×4 (00:30→20:35)
[2020-01-13 00:41] LABS: CREATINE KINASE MB FRACTION 6.7 ng/mL (0.5-3.6)
[2020-01-13] MEDS: PIPERACILLIN/TAZOBACTAM 2.25 G in DEXTROSE 5% WATER 50 ML IV SCH ×3 (02:23→19:24)
[2020-01-13 05:36] LABS: BASOPHILS % 0.5 % (0.0-2.0); EOSINOPHILS % 0.2 % (0.0-5.0); HEMATOCRIT. 25.5 % (36.0-48.0); HEMOGLOBIN. 8.2 g/dL (12.0-16.0); MEAN CORPUSCULAR HEMOGLOBIN 29.5 pg (28.0-32.0); MEAN CORPUSCULAR VOLUME 91.7 fL (81.0-99.0); MEAN PLATELET VOLUME 7.7 fl (7.4-10.4); MONOCYTES % 9.8 % (2.0-8.0); NEUTROPHILS % 79.5 % (40.0-76.0); PLATELET 293 x1000/uL (130-400); RED BLOOD CELL COUNT 2.78 mill/uL (4.2-5.4)
[2020-01-13 05:42] LABS: CHLORIDE 116 mEq/L (98-107)
[2020-01-13 05:48] LABS: LDL CHOLESTEROL 67 mg/dL (5-100)
[2020-01-13 05:50] LABS: HDL CHOLESTEROL 56 mg/dL (40-59); T4 FREE 1.14 ng/dL (0.76-1.46)
[2020-01-13] MEDS: BLOOD SUGAR DIAGNOSTIC STRIP TEST SCH ×4 (06:30→20:37)
[2020-01-13] MEDS: INSULIN LISPRO 100 UNITS/ML SUBCUT SCH ×4 (07:00→20:37)
[2020-01-13 08:43] LABS: BG BASE EXCESS -9.2 mmol/L (-2.0-2.0); BG CARBOXYHEMOGLOBIN 0.3 % (0.5-1.5); BG DEOXYHEMOGLOBIN 1.2 % (0.0-5.0); BG FRACTION INSPIRED OXYGEN 100; BG HCO3 ACT 16.8 mmol/L (22.0-26.0); BG METHEMOGLOBIN 0.1 % (0.0-1.5); BG OXYGEN SATURATION 98.8 % (92.0-98.5); BG OXYHEMOGLOBIN 98.4 % (94.0-97.0); BG PCO2 36.6 mmHg (35.0-45.0); BG PH 7.279 (7.350-7.450); BG PO2 154.6 mmHg (75.0-100.0); BG SAMPLE SITE RIGHT RADIAL; BG TIDAL VOLUME(mL) 450 mL; BG TOTAL HEMOGLOBIN 8.4 g/dL (12.0-18.0); BG VENT MODE VENT - A/C; BG VENT RATE 14 set
[2020-01-13] MEDS: AMLODIPINE 5MG TABLET PO SCH (09:00)
[2020-01-13] MEDS: LOSARTAN POTASSIUM 50 MG TABLET PO SCH (09:54)
[2020-01-13] MEDS: PANTOPRAZOLE SODIUM 40 MG/VIAL IV SCH (09:55)
[2020-01-13] MEDS ORDERED: SODIUM BICARBONATE 8.4% 1 MEQ/ML 50ML SYR IV ONE (11:30)
[2020-01-13] MEDS ORDERED: SODIUM BICARBONATE 8.4% 1 MEQ/ML 50ML SYR IV SCH (12:00)
[2020-01-13] MEDS ORDERED: VANCOMYCIN 1 G PREMIX 200 ML IV SCH (14:00)
[2020-01-13] MEDS: PROPOFOL 10MG/ML 100ML 100 ML IV PRN ×2 (17:03→22:57)
[2020-01-13] MEDS: EPOETIN ALFA 10000UNITS/ML VIAL SUBCUT SCH (20:49)
[2020-01-13 22:29] LABS: BG BASE EXCESS -2.9 mmol/L (-2.0-2.0); BG CARBOXYHEMOGLOBIN 0.3 % (0.5-1.5); BG DEOXYHEMOGLOBIN 0.7 % (0.0-5.0); BG FRACTION INSPIRED OXYGEN 1005; BG HCO3 ACT 19.7 mmol/L (22.0-26.0); BG METHEMOGLOBIN 0.2 % (0.0-1.5); BG OXYGEN SATURATION 99.3 % (92.0-98.5); BG OXYHEMOGLOBIN 98.8 % (94.0-97.0); BG PCO2 26.3 mmHg (35.0-45.0); BG PH 7.492 (7.350-7.450); BG SAMPLE SITE RIGHT RADIAL; BG TIDAL VOLUME(mL) 450 mL; BG TOTAL HEMOGLOBIN 8.3 g/dL (12.0-18.0); BG VENT MODE VENT - A/C; BG VENT RATE 14 set
[2020-01-13] MEDS: HYDRALAZINE 20MG/ML VIAL IV PRN (22:42)
[2020-01-14] VITALS (53 sets, daily range): BP systolic 91–156; BP diastolic 51–94
[2020-01-14] MEDS: PIPERACILLIN/TAZOBACTAM 2.25 G in DEXTROSE 5% WATER 50 ML IV SCH ×3 (01:32→17:35)
[2020-01-14] MEDS: IPRATROPIUM/ALBUTEROL 0.5-3(2.5)MG/3ML NEB HHN SCH ×4 (03:18→20:09)
[2020-01-14 05:25] LABS: HEMATOCRIT 26.2 % (36.0-48.0); HEMOGLOBIN 8.6 g/dL (12.0-16.0); MEAN CORPUSCULAR HEMOGLOBIN 29.1 pg (28.0-32.0); PLATELET 374 x1000/uL (130-400); RED BLOOD CELL COUNT 2.94 mill/uL (4.2-5.4); RED CELL DISTRIBUTION WIDTH 17.4 % (11.6-14.6)
[2020-01-14] MEDS: HYDRALAZINE HCL 50MG TABLET PO SCH ×3 (06:38→21:48)
[2020-01-14] MEDS: BLOOD SUGAR DIAGNOSTIC STRIP TEST SCH ×4 (06:38→22:07)
[2020-01-14] MEDS: INSULIN LISPRO 100 UNITS/ML SUBCUT SCH ×4 (06:38→22:07)
[2020-01-14] MEDS: METHYLPREDNISOLONE SOD SUCC 40 MG/ML VIAL IV SCH ×3 (06:38→22:12)
[2020-01-14 08:35] LABS: CHLORIDE 104 mEq/L (98-107)
[2020-01-14] MEDS: BUDESONIDE 0.5MG/2ML NEB HHN SCH ×2 (08:35→20:10)
[2020-01-14] MEDS: AMLODIPINE 5MG TABLET PO SCH (08:47)
[2020-01-14] MEDS: PANTOPRAZOLE SODIUM 40 MG/VIAL IV SCH (08:47)
[2020-01-14] MEDS: LOSARTAN POTASSIUM 50 MG TABLET PO SCH (08:47)
[2020-01-14] MEDS: DOCUSATE SODIUM 100MG CAPSULE PO PRN (08:47)
[2020-01-14] MEDS: PROPOFOL 10MG/ML 100ML 100 ML IV PRN ×2 (08:49→19:03)
[2020-01-14 09:12] LABS: BG CARBOXYHEMOGLOBIN 0.3 % (0.5-1.5); BG FRACTION INSPIRED OXYGEN 100; BG HCO3 ACT 16.1 mmol/L (22.0-26.0); BG METHEMOGLOBIN 0.2 % (0.0-1.5); BG OXYHEMOGLOBIN 98.5 % (94.0-97.0); BG PCO2 27.4 mmHg (35.0-45.0); BG PH 7.386 (7.350-7.450); BG PO2 186.8 mmHg (75.0-100.0); BG SAMPLE SITE RIGHT RADIAL; BG TIDAL VOLUME(mL) 450 mL; BG TOTAL HEMOGLOBIN 8.3 g/dL (12.0-18.0); BG VENT MODE VENT - A/C; BG VENT RATE 14 set
[2020-01-14] MEDS ORDERED: LORAZEPAM 2MG/ML CPJ IV PRN (13:00)
[2020-01-15] VITALS (66 sets, daily range): BP systolic 97–148; BP diastolic 57–91
[2020-01-15] MEDS: IPRATROPIUM/ALBUTEROL 0.5-3(2.5)MG/3ML NEB HHN SCH ×5 (00:32→23:39)
[2020-01-15] MEDS: PROPOFOL 10MG/ML 100ML 100 ML IV PRN ×3 (03:33→18:35)
[2020-01-15] MEDS: PIPERACILLIN/TAZOBACTAM 2.25 G in DEXTROSE 5% WATER 50 ML IV SCH ×3 (03:34→17:00)
[2020-01-15 05:30] LABS: HEMATOCRIT 26.6 % (36.0-48.0); HEMOGLOBIN 8.8 g/dL (12.0-16.0); MEAN CORPUSCULAR HEMOGLOBIN 29.3 pg (28.0-32.0); MEAN CORPUSCULAR VOLUME 88.6 fL (81.0-99.0); PLATELET 452 x1000/uL (130-400); RED CELL DISTRIBUTION WIDTH 17.7 % (11.6-14.6)
[2020-01-15] MEDS: HYDRALAZINE HCL 50MG TABLET PO SCH ×3 (05:52→22:00)
[2020-01-15] MEDS: METHYLPREDNISOLONE SOD SUCC 40 MG/ML VIAL IV SCH ×3 (06:02→22:56)
[2020-01-15] MEDS: BLOOD SUGAR DIAGNOSTIC STRIP TEST SCH ×4 (06:30→21:00)
[2020-01-15] MEDS: INSULIN LISPRO 100 UNITS/ML SUBCUT SCH ×4 (07:00→21:00)
[2020-01-15] MEDS: BUDESONIDE 0.5MG/2ML NEB HHN SCH ×2 (08:42→20:58)
[2020-01-15] MEDS: AMLODIPINE 5MG TABLET PO SCH (08:43)
[2020-01-15] MEDS: LOSARTAN POTASSIUM 50 MG TABLET PO SCH (08:43)
[2020-01-15] MEDS: PANTOPRAZOLE SODIUM 40 MG/VIAL IV SCH (08:43)
[2020-01-15 08:49] LABS: BG BASE EXCESS -3.8 mmol/L (-2.0-2.0); BG CARBOXYHEMOGLOBIN 0.3 % (0.5-1.5); BG DEOXYHEMOGLOBIN 5.3 % (0.0-5.0); BG FRACTION INSPIRED OXYGEN 60; BG HCO3 ACT 20.4 mmol/L (22.0-26.0); BG METHEMOGLOBIN 0.1 % (0.0-1.5); BG OXYGEN SATURATION 94.7 % (92.0-98.5); BG OXYHEMOGLOBIN 94.3 % (94.0-97.0); BG PH 7.397 (7.350-7.450); BG PO2 81.2 mmHg (75.0-100.0); BG SAMPLE SITE RIGHT BRACHIAL; BG TIDAL VOLUME(mL) 450 mL; BG TOTAL HEMOGLOBIN 9.2 g/dL (12.0-18.0); BG VENT MODE VENT - A/C; BG VENT RATE 14 set
[2020-01-15] MEDS: ONDANSETRON HCL 4MG/2ML INJ IV PRN (22:57)
[2020-01-15] MEDS: DIPHENHYDRAMINE 50MG/ML VIAL IV PRN (22:57)
[2020-01-15] MEDS: HYDROCODONE/ACETAMINOPHEN 5/325MG TABLET PO PRN (22:59)
[2020-01-15] MEDS: GUAIFENESIN 200MG/10ML SUGAR FREE UDC PO PRN (22:59)
[2020-01-16] VITALS (100 sets, daily range): BP systolic 105–175; BP diastolic 66–103
[2020-01-16] MEDS: PIPERACILLIN/TAZOBACTAM 2.25 G in DEXTROSE 5% WATER 50 ML IV SCH ×3 (02:00→17:46)
[2020-01-16 05:53] LABS: HEMOGLOBIN 7.5 g/dL (12.0-16.0); MEAN CORPUSCULAR HEMOGLOBIN 28.9 pg (28.0-32.0); MEAN CORPUSCULAR VOLUME 88.9 fL (81.0-99.0); PLATELET 316 x1000/uL (130-400); RED BLOOD CELL COUNT 2.59 mill/uL (4.2-5.4); RED CELL DISTRIBUTION WIDTH 17.7 % (11.6-14.6)
[2020-01-16] MEDS: BLOOD SUGAR DIAGNOSTIC STRIP TEST SCH ×4 (06:01→21:00)
[2020-01-16] MEDS: METHYLPREDNISOLONE SOD SUCC 40 MG/ML VIAL IV SCH ×2 (06:05→14:01)
[2020-01-16] MEDS: HYDRALAZINE HCL 50MG TABLET PO SCH ×3 (06:05→20:29)
[2020-01-16] MEDS: LORAZEPAM 2MG/ML CPJ IM PRN (06:07)
[2020-01-16] MEDS: DIPHENHYDRAMINE 50MG/ML VIAL IV PRN ×2 (06:09→09:25)
[2020-01-16] MEDS: PROPOFOL 10MG/ML 100ML 100 ML IV PRN ×2 (06:12→14:01)
[2020-01-16] MEDS: INSULIN LISPRO 100 UNITS/ML SUBCUT SCH ×4 (07:19→21:00)
[2020-01-16] MEDS: IPRATROPIUM/ALBUTEROL 0.5-3(2.5)MG/3ML NEB HHN SCH ×2 (09:15→13:44)
[2020-01-16] MEDS: BUDESONIDE 0.5MG/2ML NEB HHN SCH (09:15)
[2020-01-16] MEDS: LOSARTAN POTASSIUM 50 MG TABLET PO SCH (09:25)
[2020-01-16] MEDS: DOCUSATE SODIUM 100MG CAPSULE PO PRN (09:25)
[2020-01-16] MEDS: AMLODIPINE 5MG TABLET PO SCH (09:25)
[2020-01-16] MEDS: PANTOPRAZOLE SODIUM 40 MG/VIAL IV SCH (09:25)
[2020-01-16 16:09] LABS: BG BASE EXCESS 1.1 mmol/L (-2.0-2.0); BG CARBOXYHEMOGLOBIN 0.3 % (0.5-1.5); BG DEOXYHEMOGLOBIN 1.8 % (0.0-5.0); BG HCO3 ACT 26.3 mmol/L (22.0-26.0); BG METHEMOGLOBIN 0.5 % (0.0-1.5); BG OXYGEN SATURATION 98.2 % (92.0-98.5); BG OXYHEMOGLOBIN 97.4 % (94.0-97.0); BG PCO2 44.7 mmHg (35.0-45.0); BG PH 7.387 (7.350-7.450); BG PO2 119.8 mmHg (75.0-100.0); BG SAMPLE SITE RIGHT BRACHIAL; BG TIDAL VOLUME(mL) 450 mL; BG TOTAL HEMOGLOBIN 8.9 g/dL (12.0-18.0); BG VENT MODE VENT - A/C; BG VENT RATE 14 set
[2020-01-16] MEDS: HYDRALAZINE 20MG/ML VIAL IV PRN (17:42)
[2020-01-16 18:58] LABS: CLARITY URINE CLEAR (CLEAR); COLOR URINE YELLOW (YELLOW); KETONES URINE NEGATIVE (NEGATIVE); LEUKOCYTE ESTERASE URINE NEGATIVE (NEGATIVE); NITRITE URINE NEGATIVE (NEGATIVE); OCCULT BLOOD URINE NEGATIVE (NEGATIVE); PH URINE 6.5 (4.5-8.0); PROTEIN URINE 1+ (NEGATIVE); SPECIFIC GRAVITY URINE 1.018 (1.005-1.030); UROBILINOGEN URINE 0.2 E.U./dL (0.2-1.0)
[2020-01-16] MEDS: GUAIFENESIN 200MG/10ML SUGAR FREE UDC PO PRN (20:30)
[2020-01-16] MEDS: ONDANSETRON HCL 4MG/2ML INJ IV PRN (20:30)
[2020-01-16] MEDS: EPOETIN ALFA 10000UNITS/ML VIAL SUBCUT SCH (21:59)
[2020-01-17] VITALS (100 sets, daily range): BP systolic 122–189; BP diastolic 40–113
[2020-01-17] MEDS: IPRATROPIUM/ALBUTEROL 0.5-3(2.5)MG/3ML NEB HHN SCH ×2 (00:50→21:15)
[2020-01-17] MEDS: PIPERACILLIN/TAZOBACTAM 2.25 G in DEXTROSE 5% WATER 50 ML IV SCH ×2 (01:41→11:04)
[2020-01-17] MEDS ORDERED: METHYLPREDNISOLONE SOD SUCC 40 MG/ML VIAL IV SCH (03:00)
[2020-01-17] MEDS: BLOOD SUGAR DIAGNOSTIC STRIP TEST SCH ×4 (05:35→21:00)
[2020-01-17] MEDS: INSULIN LISPRO 100 UNITS/ML SUBCUT SCH ×4 (05:35→21:00)
[2020-01-17] MEDS: DIPHENHYDRAMINE 50MG/ML VIAL IV PRN (05:37)
[2020-01-17] MEDS: ONDANSETRON HCL 4MG/2ML INJ IV PRN (05:37)
[2020-01-17] MEDS: HYDROCODONE/ACETAMINOPHEN 5/325MG TABLET PO PRN (05:39)
[2020-01-17 05:54] LABS: HEMATOCRIT. 26.5 % (36.0-48.0); HEMOGLOBIN. 8.5 g/dL (12.0-16.0); MEAN CORPUSCULAR HEMOGLOBIN 28.9 pg (28.0-32.0); MEAN CORPUSCULAR VOLUME 90.3 fL (81.0-99.0); MEAN PLATELET VOLUME 7.9 fl (7.4-10.4); PLATELET 363 x1000/uL (130-400); RED BLOOD CELL COUNT 2.94 mill/uL (4.2-5.4); RED CELL DISTRIBUTION WIDTH 18.4 % (11.6-14.6)
[2020-01-17] MEDS: HYDRALAZINE HCL 50MG TABLET PO SCH ×3 (08:38→21:01)
[2020-01-17] MEDS: DOCUSATE SODIUM 100MG CAPSULE PO PRN (08:38)
[2020-01-17] MEDS: PANTOPRAZOLE SODIUM 40 MG/VIAL IV SCH (08:39)
[2020-01-17] MEDS: AMLODIPINE 10MG TABLET PO SCH (08:39)
[2020-01-17] MEDS: LOSARTAN POTASSIUM 100 MG TABLET PO SCH (08:39)
[2020-01-17] MEDS: LORAZEPAM 2MG/ML CPJ IM PRN (08:39)
[2020-01-17 09:36] LABS: PLATELET ESTIMATE NORMAL
[2020-01-17 09:50] LABS: BG BASE EXCESS 1.1 mmol/L (-2.0-2.0); BG CARBOXYHEMOGLOBIN 0.3 % (0.5-1.5); BG DEOXYHEMOGLOBIN 2.8 % (0.0-5.0); BG FRACTION INSPIRED OXYGEN 50; BG HCO3 ACT 27.4 mmol/L (22.0-26.0); BG METHEMOGLOBIN 0.3 % (0.0-1.5); BG OXYGEN SATURATION 97.2 % (92.0-98.5); BG OXYHEMOGLOBIN 96.6 % (94.0-97.0); BG PCO2 52.3 mmHg (35.0-45.0); BG PH 7.337 (7.350-7.450); BG PO2 105.7 mmHg (75.0-100.0); BG SAMPLE SITE RIGHT RADIAL; BG TIDAL VOLUME(mL) 450 mL; BG VENT MODE VENT - A/C; BG VENT RATE 14 set
[2020-01-17] MEDS: HYDRALAZINE 20MG/ML VIAL IV PRN (11:04)
[2020-01-17 14:28] LABS: BG BASE EXCESS 2.9 mmol/L (-2.0-2.0); BG CARBOXYHEMOGLOBIN 0.3 % (0.5-1.5); BG DEOXYHEMOGLOBIN 2.3 % (0.0-5.0); BG FRACTION INSPIRED OXYGEN 50; BG HCO3 ACT 27.9 mmol/L (22.0-26.0); BG METHEMOGLOBIN 0.3 % (0.0-1.5); BG OXYGEN SATURATION 97.7 % (92.0-98.5); BG OXYHEMOGLOBIN 97.1 % (94.0-97.0); BG PCO2 44.8 mmHg (35.0-45.0); BG PH 7.412 (7.350-7.450); BG PO2 113.9 mmHg (75.0-100.0); BG PRESSURE SUPPORT 10; BG SAMPLE SITE RIGHT RADIAL; BG TOTAL HEMOGLOBIN 9.6 g/dL (12.0-18.0); BG VENT MODE VENT - CPAP
[2020-01-17] MEDS ORDERED: VANCOMYCIN 1500MG in DEXTROSE 5% WATER 250ML IV SCH (16:00)
[2020-01-17] MEDS: CEFEPIME 1,000 MG in DEXTROSE 5% WATER 50 ML IV SCH (16:12)
[2020-01-17 18:29] LABS: BG CARBOXYHEMOGLOBIN 0.3 % (0.5-1.5); BG SAMPLE SITE RIGHT RADIAL
[2020-01-17 18:40] LABS: BG FRACTION INSPIRED OXYGEN 80; BG PH 7.408 (7.350-7.450); BG VENT MODE AEROSOL
[2020-01-17 18:41] LABS: BG HCO3 ACT 24.2 mmol/L (22.0-26.0); BG PCO2 39.3 mmHg (35.0-45.0); BG PO2 104.9 mmHg (75.0-100.0)
[2020-01-17 18:42] LABS: BG BASE EXCESS -0.3 mmol/L (-2.0-2.0); BG TOTAL HEMOGLOBIN 9.7 g/dL (12.0-18.0)
[2020-01-17 18:43] LABS: BG METHEMOGLOBIN 0.1 % (0.0-1.5); BG OXYGEN SATURATION 97.3 % (92.0-98.5); BG OXYHEMOGLOBIN 96.9 % (94.0-97.0)
[2020-01-17 18:44] LABS: BG DEOXYHEMOGLOBIN 2.7 % (0.0-5.0)
[2020-01-17] MEDS ORDERED: CEFEPIME HCL 1000MG/VIAL INJ IM SCH (21:00)
[2020-01-17] MEDS: BUDESONIDE 0.5MG/2ML NEB HHN SCH (21:15)
[2020-01-17] MEDS: MORPHINE SULFATE 2 MG/ML CPJ (NOT FOR IM USE) IV PRN (22:48)
[2020-01-17] MEDS ORDERED: MORPHINE SULFATE 2 MG/ML CPJ (NOT FOR IM USE) IV NR (23:47)
[2020-01-18] VITALS (66 sets, daily range): BP systolic 83–181; BP diastolic 27–106
[2020-01-18] MEDS: HYDRALAZINE 20MG/ML VIAL IV PRN ×3 (00:44→18:54)
[2020-01-18] MEDS: IPRATROPIUM/ALBUTEROL 0.5-3(2.5)MG/3ML NEB HHN SCH ×4 (01:21→21:16)
[2020-01-18] MEDS: MORPHINE SULFATE 2 MG/ML CPJ (NOT FOR IM USE) IV PRN ×2 (02:54→07:02)
[2020-01-18 05:26] LABS: HEMATOCRIT 23.5 % (36.0-48.0); HEMOGLOBIN 7.5 g/dL (12.0-16.0); MEAN CORPUSCULAR HEMOGLOBIN 28.5 pg (28.0-32.0); MEAN CORPUSCULAR VOLUME 88.9 fL (81.0-99.0); PLATELET 320 x1000/uL (130-400); RED BLOOD CELL COUNT 2.64 mill/uL (4.2-5.4)
[2020-01-18] MEDS: BLOOD SUGAR DIAGNOSTIC STRIP TEST SCH ×4 (05:57→21:16)
[2020-01-18] MEDS: INSULIN LISPRO 100 UNITS/ML SUBCUT SCH ×4 (05:57→20:22)
[2020-01-18] MEDS: HYDRALAZINE HCL 50MG TABLET PO SCH ×2 (06:16→21:16)
[2020-01-18] MEDS: BUDESONIDE 0.5MG/2ML NEB HHN SCH ×2 (08:00→21:16)
[2020-01-18] MEDS: PANTOPRAZOLE SODIUM 40 MG/VIAL IV SCH (09:11)
[2020-01-18] MEDS: LOSARTAN POTASSIUM 100 MG TABLET PO SCH (09:11)
[2020-01-18] MEDS: AMLODIPINE 10MG TABLET PO SCH (09:11)
[2020-01-18] MEDS: METHYLPREDNISOLONE SOD SUCC 40 MG/ML VIAL IV SCH (09:11)
[2020-01-18] MEDS: LORAZEPAM 2MG/ML CPJ IM PRN (09:30)
[2020-01-18 11:17] LABS: BG BASE EXCESS 1.4 mmol/L (-2.0-2.0); BG CARBOXYHEMOGLOBIN 0.1 % (0.5-1.5); BG DEOXYHEMOGLOBIN 8.3 % (0.0-5.0); BG FRACTION INSPIRED OXYGEN 40; BG HCO3 ACT 26.3 mmol/L (22.0-26.0); BG METHEMOGLOBIN 0.4 % (0.0-1.5); BG OXYGEN SATURATION 91.7 % (92.0-98.5); BG OXYHEMOGLOBIN 91.2 % (94.0-97.0); BG PCO2 42.6 mmHg (35.0-45.0); BG PH 7.408 (7.350-7.450); BG PO2 64.4 mmHg (75.0-100.0); BG SAMPLE SITE RIGHT RADIAL; BG TOTAL HEMOGLOBIN 8.5 g/dL (12.0-18.0); BG VENT MODE MASK - AEROSOL
[2020-01-18] MEDS ORDERED: LORAZEPAM 2MG/ML CPJ IV PRN (15:00)
[2020-01-18] MEDS: CEFEPIME 1,000 MG in DEXTROSE 5% WATER 50 ML IV SCH (15:12)
[2020-01-18] MEDS: EPOETIN ALFA 10000UNITS/ML VIAL SUBCUT SCH (20:21)
[2020-01-19] VITALS (13 sets, daily range): BP systolic 116–146; BP diastolic 64–80
[2020-01-19] MEDS: MORPHINE SULFATE 2 MG/ML CPJ (NOT FOR IM USE) IV PRN ×2 (00:39→08:29)
[2020-01-19] MEDS: IPRATROPIUM/ALBUTEROL 0.5-3(2.5)MG/3ML NEB HHN SCH ×4 (02:35→21:16)
[2020-01-19] MEDS: HYDRALAZINE HCL 50MG TABLET PO SCH ×3 (05:54→21:06)
[2020-01-19 06:01] LABS: HEMATOCRIT 22.8 % (36.0-48.0); HEMOGLOBIN 7.3 g/dL (12.0-16.0); MEAN CORPUSCULAR VOLUME 88.2 fL (81.0-99.0); PLATELET 302 x1000/uL (130-400); RED BLOOD CELL COUNT 2.59 mill/uL (4.2-5.4); RED CELL DISTRIBUTION WIDTH 17.3 % (11.6-14.6)
[2020-01-19] MEDS: INSULIN LISPRO 100 UNITS/ML SUBCUT SCH ×4 (08:00→21:00)
[2020-01-19] MEDS: BLOOD SUGAR DIAGNOSTIC STRIP TEST SCH ×4 (08:12→21:00)
[2020-01-19] MEDS: METHYLPREDNISOLONE SOD SUCC 40 MG/ML VIAL IV SCH (08:28)
[2020-01-19] MEDS: AMLODIPINE 10MG TABLET PO SCH (08:28)
[2020-01-19] MEDS: PANTOPRAZOLE SODIUM 40 MG/VIAL IV SCH (08:28)
[2020-01-19] MEDS: LOSARTAN POTASSIUM 100 MG TABLET PO SCH (08:28)
[2020-01-19 08:57] LABS: BG BASE EXCESS 0.4 mmol/L (-2.0-2.0); BG CARBOXYHEMOGLOBIN 0.8 % (0.5-1.5); BG DEOXYHEMOGLOBIN 7.1 % (0.0-5.0); BG FRACTION INSPIRED OXYGEN 40; BG HCO3 ACT 24.3 mmol/L (22.0-26.0); BG METHEMOGLOBIN 0.4 % (0.0-1.5); BG OXYGEN SATURATION 92.8 % (92.0-98.5); BG OXYHEMOGLOBIN 91.7 % (94.0-97.0); BG PCO2 35.5 mmHg (35.0-45.0); BG PH 7.453 (7.350-7.450); BG PO2 66.4 mmHg (75.0-100.0); BG SAMPLE SITE RIGHT RADIAL; BG VENT MODE MASK - AEROSOL
[2020-01-19] MEDS: BUDESONIDE 0.5MG/2ML NEB HHN SCH ×2 (09:57→21:15)
[2020-01-19 13:28] LABS: TOTAL IRON BINDING CAPACITY 219 ug/dL (250-450)
[2020-01-19] MEDS: CEFEPIME 1,000 MG in DEXTROSE 5% WATER 50 ML IV SCH (15:47)
[2020-01-19] MEDS: HYDROCODONE/ACETAMINOPHEN 5/325MG TABLET PO PRN ×2 (15:48→22:17)
[2020-01-20] VITALS (7 sets, daily range): BP systolic 105–130; BP diastolic 50–74
[2020-01-20 00:33] LABS: HEMATOCRIT 23.9 % (36.0-48.0); HEMOGLOBIN 8.1 g/dL (12.0-16.0)
[2020-01-20] MEDS: IPRATROPIUM/ALBUTEROL 0.5-3(2.5)MG/3ML NEB HHN SCH ×3 (03:02→14:15)
[2020-01-20] MEDS: HYDRALAZINE HCL 50MG TABLET PO SCH ×2 (05:05→13:58)
[2020-01-20 06:24] LABS: HEMATOCRIT 28.1 % (36.0-48.0); HEMOGLOBIN 9.2 g/dL (12.0-16.0); MEAN CORPUSCULAR HEMOGLOBIN 28.8 pg (28.0-32.0); MEAN CORPUSCULAR VOLUME 87.4 fL (81.0-99.0); PLATELET 304 x1000/uL (130-400); RED BLOOD CELL COUNT 3.21 mill/uL (4.2-5.4); RED CELL DISTRIBUTION WIDTH 16.7 % (11.6-14.6)
[2020-01-20] MEDS: INSULIN LISPRO 100 UNITS/ML SUBCUT SCH ×2 (08:00→14:03)
[2020-01-20] MEDS: BLOOD SUGAR DIAGNOSTIC STRIP TEST SCH (08:29)
[2020-01-20] MEDS: PANTOPRAZOLE SODIUM 40 MG/VIAL IV SCH (08:31)
[2020-01-20] MEDS: METHYLPREDNISOLONE SOD SUCC 40 MG/ML VIAL IV SCH (08:31)
[2020-01-20] MEDS: LOSARTAN POTASSIUM 100 MG TABLET PO SCH ×2 (08:40→08:42)
[2020-01-20] MEDS: AMLODIPINE 10MG TABLET PO SCH (08:41)
[2020-01-20] MEDS: BUDESONIDE 0.5MG/2ML NEB HHN SCH (14:15)
[2020-01-20] MEDS: HYDROCODONE/ACETAMINOPHEN 5/325MG TABLET PO PRN (15:53)
== END 2020-01-20 18:30 | disposition left against medical advice (07) | DRG 207 ==
LOC: ER 07:45 → EDBEDREQ 10:17 → EDBEDREQSVC 10:17 → EDBEDREQ 10:20 → MICUSO 11:02 → EDBEDREQ 11:08 → EDBEDREQTM 11:08 → EDBEDREQSVC 11:08 → ENRESERV 21:15 → MICUNO 01-13 04:30 → 5EST 01-18 21:40
PROVIDERS: ADMIT Internal Medicine; ATTEND Internal Medicine
PROC: 0BH17EZ Insertion of Endotracheal Airway into Trachea, Via Natural or Artificial Opening (ICD-10-PCS; 2020-01-12)
PROC: 5A1955Z Respiratory Ventilation, Greater than 96 Consecutive Hours (ICD-10-PCS; 2020-01-12)
PROC: 02HV33Z Insertion of Infusion Device into Superior Vena Cava, Percutaneous Approach (ICD-10-PCS; 2020-01-12)
PROC: B5181ZA Fluoroscopy of Superior Vena Cava using Low Osmolar Contrast, Guidance (ICD-10-PCS; 2020-01-12)
PROC: B548ZZA Ultrasonography of Superior Vena Cava, Guidance (ICD-10-PCS; 2020-01-12)
PROC: 5A1D70Z Performance of Urinary Filtration, Intermittent, Less than 6 Hours Per Day (ICD-10-PCS; 2020-01-14)
PROC: 5A1D70Z Performance of Urinary Filtration, Intermittent, Less than 6 Hours Per Day (ICD-10-PCS; 2020-01-16)
PROC: 30233N1 Transfusion of Nonautologous Red Blood Cells into Peripheral Vein, Percutaneous Approach (ICD-10-PCS; principal; 2020-01-19)
PROC: 5A1D70Z Performance of Urinary Filtration, Intermittent, Less than 6 Hours Per Day (ICD-10-PCS; 2020-01-19)
DX: J96.01 Acute respiratory failure with hypoxia (principal); N18.6 End stage renal disease; I50.33 Acute on chronic diastolic (congestive) heart failure; J18.9 Pneumonia, unspecified organism; J44.1 Chronic obstructive pulmonary disease with (acute) exacerbation; E87.2 Acidosis; I13.2 Hypertensive heart and chronic kidney disease with heart failure and with stage 5 chronic kidney disease, or end stage renal disease; J44.0 Chronic obstructive pulmonary disease with (acute) lower respiratory infection; K92.1 Melena; E87.5 Hyperkalemia; I27.20 Pulmonary hypertension, unspecified; D64.9 Anemia, unspecified; B19.20 Unspecified viral hepatitis C without hepatic coma; D25.9 Leiomyoma of uterus, unspecified; D72.810 Lymphocytopenia; E11.22 Type 2 diabetes mellitus with diabetic chronic kidney disease; E78.5 Hyperlipidemia, unspecified; K08.109 Complete loss of teeth, unspecified cause, unspecified class; R79.89 Other specified abnormal findings of blood chemistry; R74.0 Nonspecific elevation of levels of transaminase and lactic acid dehydrogenase [LDH]; Z53.29 Procedure and treatment not carried out because of patient's decision for other reasons; F32.9 Major depressive disorder, single episode, unspecified; I37.1 Nonrheumatic pulmonary valve insufficiency; I07.1 Rheumatic tricuspid insufficiency; Z20.828 Contact with and (suspected) exposure to other viral communicable diseases; Z91.19 Patient's noncompliance with other medical treatment and regimen; Z99.2 Dependence on renal dialysis; Z79.899 Other long term (current) drug therapy; Z78.1 Physical restraint status
CPT/HCPCS: 31500; 36415; 36600; 71045; 74176; 76937; 80048; 80053; 80061; 80202; 81003; 82375; 82550; 82553; 82728; 82805; 82962; 83540; 83550; 84439; 84443; 84478; 84484; 85014; 85018; 85025; 85027; 86850; 86870; 86900; 86920; 87070; 88305; 88313; 92610; 93005; 93306; 94002; 94003; 94640; 96365; 97162; 99291; C1725; C9113; J0360; J0610; J0692; J0885; J1200; J1815; J2060; J2250; J2270; J2405; J2543; J2704; J2920; J3370; J3490; J7060; J7626; P9016; U0003-CS

== ENCOUNTER 2020-01-22 18:20 | Inpatient (IN) | payer MEDICARE, MEDICAID ==
[~2020-01-22] VITALS: Ht 165.1 cm; Wt 59.0 kg
[2020-01-22] MEDS ORDERED: ACETAMINOPHEN 325MG TABLET PO ONE (19:45)
[2020-01-22] MEDS ORDERED: PIPERACILLIN/TAZ 3.375G PREMIX 50 ML IV ONE (19:45)
[2020-01-22] MEDS ORDERED: VANCOMYCIN 1 G PREMIX 200 ML IV ONE (19:45)
[2020-01-22] MEDS ORDERED: CLONIDINE 0.2MG TABLET PO ONE (20:00)
[2020-01-22 20:34] LABS: HEMATOCRIT. 28.3 % (36.0-48.0); HEMOGLOBIN. 8.9 g/dL (12.0-16.0); MEAN CORPUSCULAR HEMOGLOBIN 28.1 pg (28.0-32.0); MEAN PLATELET VOLUME 8.1 fl (7.4-10.4); PLATELET 374 x1000/uL (130-400); RED BLOOD CELL COUNT 3.18 mill/uL (4.2-5.4); RED CELL DISTRIBUTION WIDTH 16.7 % (11.6-14.6)
[2020-01-22 20:40] LABS: CHLORIDE 108 mEq/L (98-107)
[2020-01-22 20:45] LABS: PARTIAL THROMBOPLASTIN TIME 28.4 sec (23.4-31.0); PROTHROMBIN TIME 10.8 sec (9.6-11.0)
[2020-01-22 21:08] LABS: CLARITY URINE CLEAR (CLEAR); COLOR URINE YELLOW (YELLOW); KETONES URINE NEGATIVE (NEGATIVE); LEUKOCYTE ESTERASE URINE NEGATIVE (NEGATIVE); NITRITE URINE NEGATIVE (NEGATIVE); OCCULT BLOOD URINE TRACE (NEGATIVE); PH URINE >=9.0 (4.5-8.0); PROTEIN URINE 2+ (NEGATIVE); SPECIFIC GRAVITY URINE 1.013 (1.005-1.030); UROBILINOGEN URINE 0.2 E.U./dL (0.2-1.0)
[2020-01-22 21:20] LABS: PLATELET ESTIMATE NORMAL
[2020-01-23] MEDS ORDERED: IPRATROPIUM/ALBUTEROL 0.5-3(2.5)MG/3ML NEB NEB PRN (11:00)
[2020-01-23] MEDS ORDERED: ONDANSETRON HCL 4MG/2ML INJ IV PRN (11:00)
[2020-01-23] MEDS ORDERED: DEXTROSE 50% WATER 50ML SYRINGE IV PRN (11:00)
[2020-01-23 12:00] VITALS: BP_SYST 130; BP_SYST 133; BP_DIAS 71; BP_DIAS 75
[2020-01-23] MEDS: BLOOD SUGAR DIAGNOSTIC STRIP TEST SCH ×3 (12:40→21:00)
[2020-01-23] MEDS: INSULIN LISPRO 100 UNITS/ML SUBCUT SCH ×3 (13:10→21:00)
[2020-01-23] MEDS: PANTOPRAZOLE SODIUM 40 MG/VIAL IV SCH (14:17)
[2020-01-23] MEDS: PIPERACILLIN/TAZOBACTAM 2.25 G in DEXTROSE 5% WATER 50 ML IV SCH ×2 (15:00→17:57)
[2020-01-23 16:00] VITALS: BP 140/76
[2020-01-23] MEDS ORDERED: PNEUMOCOCCAL 23-VAL P-SAC VAC 0.5 ML IM ONE (17:45)
[2020-01-23 20:00] VITALS: BP 142/69
[2020-01-23] MEDS: EPOETIN ALFA 10000UNITS/ML VIAL SUBCUT SCH (21:37)
[2020-01-23 21:59] LABS: MEAN CORPUSCULAR HEMOGLOBIN 27.8 pg (28.0-32.0); MEAN CORPUSCULAR VOLUME 87.4 fL (81.0-99.0); MEAN PLATELET VOLUME 8.4 fl (7.4-10.4); PLATELET 317 x1000/uL (130-400); RED CELL DISTRIBUTION WIDTH 16.9 % (11.6-14.6)
[2020-01-23 22:02] LABS: HEMOGLOBIN. 6.7 g/dL (12.0-16.0)
[2020-01-23 22:13] LABS: CHLORIDE 112 mEq/L (98-107)
[2020-01-23 22:18] LABS: PLATELET ESTIMATE NORMAL
[2020-01-23 23:44] LABS: HEMATOCRIT 22.3 % (36.0-48.0); HEMOGLOBIN 7.2 g/dL (12.0-16.0)
[2020-01-24] VITALS (11 sets, daily range): BP systolic 118–199; BP diastolic 60–91
[2020-01-24] MEDS: PIPERACILLIN/TAZOBACTAM 2.25 G in DEXTROSE 5% WATER 50 ML IV SCH ×3 (03:07→19:36)
[2020-01-24] MEDS: DIPHENHYDRAMINE 50MG/ML VIAL IV PRN (03:07)
[2020-01-24] MEDS: IPRATROPIUM/ALBUTEROL 0.5-3(2.5)MG/3ML NEB NEB SCH ×4 (03:25→22:04)
[2020-01-24] MEDS: MORPHINE SULFATE 2 MG/ML CPJ (NOT FOR IM USE) IV PRN ×2 (04:47→20:10)
[2020-01-24 06:14] LABS: CHLORIDE 114 mEq/L (98-107)
[2020-01-24] MEDS: BLOOD SUGAR DIAGNOSTIC STRIP TEST SCH ×4 (06:14→21:34)
[2020-01-24 06:20] LABS: BASOPHILS % 0.2 % (0.0-2.0); EOSINOPHILS % 0.1 % (0.0-5.0); LYMPHOCYTES % 8.4 % (20.0-50.0); MEAN CORPUSCULAR HEMOGLOBIN 28.5 pg (28.0-32.0); MEAN CORPUSCULAR VOLUME 87.7 fL (81.0-99.0); MEAN PLATELET VOLUME 8.1 fl (7.4-10.4); MONOCYTES % 8.7 % (2.0-8.0); NEUTROPHILS % 82.6 % (40.0-76.0); PLATELET 292 x1000/uL (130-400); RED BLOOD CELL COUNT 2.28 mill/uL (4.2-5.4); RED CELL DISTRIBUTION WIDTH 16.7 % (11.6-14.6)
[2020-01-24 06:31] LABS: LDL CHOLESTEROL 95 mg/dL (5-100)
[2020-01-24 06:32] LABS: HDL CHOLESTEROL 59 mg/dL (40-59)
[2020-01-24 07:31] LABS: HEMOGLOBIN. 6.5 g/dL (12.0-16.0)
[2020-01-24] MEDS: INSULIN LISPRO 100 UNITS/ML SUBCUT SCH ×4 (07:50→21:00)
[2020-01-24] MEDS: PANTOPRAZOLE SODIUM 40 MG/VIAL IV SCH (08:59)
[2020-01-24] MEDS: LORAZEPAM 2MG/ML CPJ IV PRN (20:34)
[2020-01-24 20:42] LABS: HEMOGLOBIN 8.2 g/dL (12.0-16.0)
[2020-01-24 21:00] LABS: PROTHROMBIN TIME 10.2 sec (9.6-11.0)
[2020-01-24] MEDS: DEXT 5%/0.45% NACL 1000ML 1,000 ML IV SCH (23:59)
[2020-01-25] VITALS (7 sets, daily range): BP systolic 126–239; BP diastolic 75–100
[2020-01-25] MEDS: IPRATROPIUM/ALBUTEROL 0.5-3(2.5)MG/3ML NEB NEB SCH ×4 (01:14→20:59)
[2020-01-25] MEDS ORDERED: CLONIDINE 0.1MG TABLET PO PRN (05:15)
[2020-01-25] MEDS: HYDRALAZINE 20MG/ML VIAL IV PRN ×2 (05:43→21:28)
[2020-01-25] MEDS: INSULIN LISPRO 100 UNITS/ML SUBCUT SCH ×4 (05:56→21:27)
[2020-01-25] MEDS: BLOOD SUGAR DIAGNOSTIC STRIP TEST SCH ×4 (05:56→20:35)
[2020-01-25 07:10] LABS: MEAN CORPUSCULAR HEMOGLOBIN 29.1 pg (28.0-32.0); PLATELET 284 x1000/uL (130-400); RED BLOOD CELL COUNT 2.75 mill/uL (4.2-5.4); RED CELL DISTRIBUTION WIDTH 16.1 % (11.6-14.6)
[2020-01-25] MEDS: PANTOPRAZOLE SODIUM 40 MG/VIAL IV SCH (09:41)
[2020-01-25] MEDS ORDERED: LINEZOLID 600 MG PREMIX 300 ML IV NR (13:00)
[2020-01-25] MEDS: PIPERACILLIN/TAZOBACTAM 2.25 G in DEXTROSE 5% WATER 50 ML IV SCH ×3 (15:10→18:42)
[2020-01-25] MEDS ORDERED: MIDAZOLAM HCL 5 MG/5 ML VIAL IV PRN (16:09)
[2020-01-25] MEDS ORDERED: MIDAZOLAM HCL 5 MG/5 ML VIAL ONE (16:09)
[2020-01-25] MEDS ORDERED: FENTANYL CITRATE/PF 50MCG/ML 2ML VIAL ONE (16:10)
[2020-01-25] MEDS ORDERED: FENTANYL CITRATE/PF 50MCG/ML 2ML VIAL IV PRN (16:10)
[2020-01-25] MEDS: DEXT 5%/0.45% NACL 1000ML 1,000 ML IV SCH (20:34)
[2020-01-25] MEDS: LINEZOLID 600MG TABLET PO SCH (20:34)
[2020-01-25] MEDS: MORPHINE SULFATE 2 MG/ML CPJ (NOT FOR IM USE) IV PRN (20:34)
[2020-01-25] MEDS: EPOETIN ALFA 10000UNITS/ML VIAL SUBCUT SCH (21:27)
[2020-01-25] MEDS: LORAZEPAM 2MG/ML CPJ IV PRN (22:13)
[2020-01-26] VITALS (7 sets, daily range): BP systolic 138–232; BP diastolic 80–92
[2020-01-26] MEDS: MORPHINE SULFATE 2 MG/ML CPJ (NOT FOR IM USE) IV PRN ×5 (01:07→23:38)
[2020-01-26] MEDS: PIPERACILLIN/TAZOBACTAM 2.25 G in DEXTROSE 5% WATER 50 ML IV SCH ×3 (03:53→19:12)
[2020-01-26] MEDS: HYDRALAZINE 20MG/ML VIAL IV PRN (04:08)
[2020-01-26] MEDS: BLOOD SUGAR DIAGNOSTIC STRIP TEST SCH ×4 (06:57→21:00)
[2020-01-26] MEDS: INSULIN LISPRO 100 UNITS/ML SUBCUT SCH ×4 (07:41→21:00)
[2020-01-26 08:33] LABS: HEMATOCRIT 26.5 % (36.0-48.0); HEMOGLOBIN 8.6 g/dL (12.0-16.0); MEAN CORPUSCULAR HEMOGLOBIN 28.3 pg (28.0-32.0); MEAN CORPUSCULAR VOLUME 87.4 fL (81.0-99.0); PLATELET 324 x1000/uL (130-400); RED BLOOD CELL COUNT 3.03 mill/uL (4.2-5.4); RED CELL DISTRIBUTION WIDTH 16.7 % (11.6-14.6)
[2020-01-26] MEDS: PANTOPRAZOLE SODIUM 40 MG/VIAL IV SCH (09:43)
[2020-01-26] MEDS: LINEZOLID 600MG TABLET PO SCH ×2 (09:43→22:50)
[2020-01-26] MEDS: IPRATROPIUM/ALBUTEROL 0.5-3(2.5)MG/3ML NEB NEB SCH ×3 (09:54→20:18)
[2020-01-26] MEDS: LOSARTAN POTASSIUM 50 MG TABLET PO SCH (10:00)
[2020-01-26] MEDS: HYDRALAZINE HCL 50MG TABLET PO SCH ×2 (14:00→22:40)
[2020-01-26] MEDS: DIPHENHYDRAMINE 50MG/ML VIAL IV PRN (19:25)
[2020-01-27] VITALS: BP 105/74
[2020-01-27] MEDS: PIPERACILLIN/TAZOBACTAM 2.25 G in DEXTROSE 5% WATER 50 ML IV SCH (03:50)
[2020-01-27 04:00] VITALS: BP 156/73
[2020-01-27] MEDS: MORPHINE SULFATE 2 MG/ML CPJ (NOT FOR IM USE) IV PRN ×2 (05:10→09:38)
[2020-01-27] MEDS: HYDRALAZINE HCL 50MG TABLET PO SCH (06:41)
[2020-01-27] MEDS: BLOOD SUGAR DIAGNOSTIC STRIP TEST SCH (06:42)
[2020-01-27 07:00] LABS: HEMATOCRIT 27.3 % (36.0-48.0); HEMOGLOBIN 8.7 g/dL (12.0-16.0); MEAN CORPUSCULAR HEMOGLOBIN 28.5 pg (28.0-32.0); PLATELET 249 x1000/uL (130-400); RED BLOOD CELL COUNT 3.04 mill/uL (4.2-5.4); RED CELL DISTRIBUTION WIDTH 16.9 % (11.6-14.6)
[2020-01-27] MEDS: INSULIN LISPRO 100 UNITS/ML SUBCUT SCH (07:33)
[2020-01-27] MEDS: IPRATROPIUM/ALBUTEROL 0.5-3(2.5)MG/3ML NEB NEB SCH (09:16)
[2020-01-27] MEDS: PANTOPRAZOLE SODIUM 40 MG/VIAL IV SCH (09:33)
[2020-01-27] MEDS: LOSARTAN POTASSIUM 50 MG TABLET PO SCH (09:33)
[2020-01-27] MEDS: LINEZOLID 600MG TABLET PO SCH (09:37)
[2020-01-27 09:38] VITALS: BP 150/70
== END 2020-01-27 11:45 | disposition left against medical advice (07) | DRG 377 ==
LOC: ER 18:20 → MICUSO 22:45 → 7WST 01-23 10:47 → 6WST 01-23 23:04
PROVIDERS: ADMIT Internal Medicine; ATTEND Internal Medicine
PROC: 5A1D70Z Performance of Urinary Filtration, Intermittent, Less than 6 Hours Per Day (ICD-10-PCS; 2020-01-23)
PROC: 5A1D70Z Performance of Urinary Filtration, Intermittent, Less than 6 Hours Per Day (ICD-10-PCS; 2020-01-24)
PROC: 30233N1 Transfusion of Nonautologous Red Blood Cells into Peripheral Vein, Percutaneous Approach (ICD-10-PCS; 2020-01-24)
PROC: 0DB68ZX Excision of Stomach, Via Natural or Artificial Opening Endoscopic, Diagnostic (ICD-10-PCS; principal; 2020-01-25)
PROC: 5A1D70Z Performance of Urinary Filtration, Intermittent, Less than 6 Hours Per Day (ICD-10-PCS; 2020-01-26)
DX: K29.61 Other gastritis with bleeding (principal); N18.6 End stage renal disease; I50.33 Acute on chronic diastolic (congestive) heart failure; I13.2 Hypertensive heart and chronic kidney disease with heart failure and with stage 5 chronic kidney disease, or end stage renal disease; R18.8 Other ascites; E87.2 Acidosis; N39.0 Urinary tract infection, site not specified; K52.9 Noninfective gastroenteritis and colitis, unspecified; K44.9 Diaphragmatic hernia without obstruction or gangrene; Z99.2 Dependence on renal dialysis; E11.22 Type 2 diabetes mellitus with diabetic chronic kidney disease; E78.5 Hyperlipidemia, unspecified; B19.20 Unspecified viral hepatitis C without hepatic coma; F32.9 Major depressive disorder, single episode, unspecified; I07.1 Rheumatic tricuspid insufficiency; I27.20 Pulmonary hypertension, unspecified; J44.9 Chronic obstructive pulmonary disease, unspecified; Z53.29 Procedure and treatment not carried out because of patient's decision for other reasons; I37.1 Nonrheumatic pulmonary valve insufficiency; D64.9 Anemia, unspecified; Z20.828 Contact with and (suspected) exposure to other viral communicable diseases; K08.109 Complete loss of teeth, unspecified cause, unspecified class; R91.8 Other nonspecific abnormal finding of lung field; R79.89 Other specified abnormal findings of blood chemistry; D25.9 Leiomyoma of uterus, unspecified; K22.5 Diverticulum of esophagus, acquired; Z91.19 Patient's noncompliance with other medical treatment and regimen; Z87.01 Personal history of pneumonia (recurrent); Z79.899 Other long term (current) drug therapy; Z98.49 Cataract extraction status, unspecified eye
CPT/HCPCS: 36415; 71045; 74018; 80048; 80053; 80061; 81003; 82270; 82962; 83605; 83880; 84145; 84443; 84484; 85014; 85018; 85025; 85027; 85049; 85384; 86850; 86870; 86900; 86920; 87077; 87186; 93005; 93970; 94640; 96365; 97162; 99291; C9113; J0360; J0885; J1200; J1815; J2020; J2060; J2250; J2270; J2543; J3010; J3370; J7060; P9016; U0003-CS

== ENCOUNTER 2020-01-29 04:16 | Emergency (ER) | payer MEDICARE, MEDICAID ==
[~2020-01-29] VITALS: Ht 165.1 cm; Wt 68.0 kg
[~2020-01-29 04:16] MED LIST changes: -SEVE800T8 PO; -TRAM50TA3 PO
[2020-01-29 04:31] VITALS: BP 200/99
== END 2020-01-29 06:47 | disposition left against medical advice (07) ==
LOC: ER 04:42
DX: Z53.21 Procedure and treatment not carried out due to patient leaving prior to being seen by health care provider (principal)

== ENCOUNTER 2020-03-06 08:07 | Inpatient (IN) | payer MEDICARE, MEDICAID ==
[~2020-03-06] VITALS: Ht 157.5 cm; Wt 43.0 kg
[2020-03-06] MEDS ORDERED: EPINEPHRINE 1:1000 1 MG/ML AMP IM ONE (08:45)
[2020-03-06] MEDS ORDERED: DIPHENHYDRAMINE 50MG/ML VIAL IV ONE (08:45)
[2020-03-06] MEDS ORDERED: METHYLPREDNISOLONE SOD SUCC 125 MG/2 ML VIAL IV ONE (08:45)
[2020-03-06] MEDS ORDERED: VISCOUS LIDOCAINE 2% 15 ML UDC MM STA (09:09)
[2020-03-06] MEDS ORDERED: BENZOCAINE/LANOLIN/ALOE VERA SPRAY TOP ONE (09:15)
[2020-03-06] MEDS ORDERED: LORAZEPAM 2MG/ML CPJ IV ONE (09:15)
[2020-03-06] MEDS ORDERED: LIDOCAINE HCL 4% (40MG/ML) SOLN 50ML TOP ONE (09:15)
[2020-03-06 09:20] LABS: BASOPHILS % 0.9 % (0.0-2.0); EOSINOPHILS % 0.1 % (0.0-5.0); HEMATOCRIT. 31.5 % (36.0-48.0); LYMPHOCYTES % 14.9 % (20.0-50.0); MEAN CORPUSCULAR HEMOGLOBIN 30.5 pg (28.0-32.0); MEAN CORPUSCULAR VOLUME 95.7 fL (81.0-99.0); MEAN PLATELET VOLUME 7.6 fl (7.4-10.4); MONOCYTES % 9.9 % (2.0-8.0); NEUTROPHILS % 74.2 % (40.0-76.0); PLATELET 340 x1000/uL (130-400); RED BLOOD CELL COUNT 3.29 mill/uL (4.2-5.4); RED CELL DISTRIBUTION WIDTH 19.1 % (11.6-14.6)
[2020-03-06 09:26] LABS: CHLORIDE 105 mEq/L (98-107)
[2020-03-06 09:28] LABS: INR 1.1; PROTHROMBIN TIME 11.3 sec (9.6-11.0)
[2020-03-06] MEDS ORDERED: LIDOCAINE HCL/PF 4% 40 MG/ML 5ML AMPUL IH ONE (09:45)
[2020-03-06] MEDS ORDERED: IPRATROPIUM/ALBUTEROL 0.5-3(2.5)MG/3ML NEB NEB PRN (14:00)
[2020-03-06] MEDS ORDERED: METHYLPREDNISOLONE SOD SUCC 40 MG/ML VIAL IV SCH (14:00)
[2020-03-06] MEDS ORDERED: ONDANSETRON HCL 4MG/2ML INJ IV PRN (14:00)
[2020-03-06] MEDS ORDERED: MORPHINE SULFATE 2 MG/ML CPJ (NOT FOR IM USE) IV PRN (14:00)
[2020-03-06] MEDS ORDERED: DEXT 5%/0.45% NACL 1000ML 1,000 ML IV SCH (14:00)
[2020-03-06] MEDS ORDERED: LORAZEPAM 2MG/ML CPJ IV PRN (14:00)
[2020-03-06] MEDS ORDERED: ENALAPRIL 1.25MG/ML VIAL 1ML IV PRN (14:00)
[2020-03-06] MEDS ORDERED: PIPERACILLIN/TAZOBACTAM 2.25 G in DEXTROSE 5% WATER 50 ML IV SCH (14:30)
[2020-03-06] MEDS ORDERED: FAMOTIDINE 20MG/2ML VIAL IV SCH (14:30)
[2020-03-06 15:28] LABS: BG BASE EXCESS 1.9 mmol/L (-2.0-2.0); BG CARBOXYHEMOGLOBIN 0.3 % (0.5-1.5); BG DEOXYHEMOGLOBIN 0.5 % (0.0-5.0); BG FRACTION INSPIRED OXYGEN 100; BG HCO3 ACT 26.8 mmol/L (22.0-26.0); BG METHEMOGLOBIN 0.4 % (0.0-1.5); BG OXYGEN SATURATION 99.5 % (92.0-98.5); BG OXYHEMOGLOBIN 98.8 % (94.0-97.0); BG PCO2 43.5 mmHg (35.0-45.0); BG PH 7.408 (7.350-7.450); BG PO2 239.3 mmHg (75.0-100.0); BG SAMPLE SITE RIGHT RADIAL; BG TOTAL HEMOGLOBIN 11.2 g/dL (12.0-18.0); BG VENT MODE MASK - NRB
[2020-03-06] MEDS ORDERED: POTASSIUM CHLORIDE INJ 40 MEQ in DEXT 5% WATER 250 ML IV ONE (15:30)
[2020-03-06 23:17] VITALS: BP 110/56
[2020-03-07] MEDS ORDERED: PIPERACILLIN/TAZOBACTAM 2.25 G in DEXTROSE 5% WATER 50 ML IV SCH (09:00)
== END 2020-03-07 02:04 | disposition left against medical advice (07) | DRG 915 ==
LOC: ER 08:21 → EDBEDREQSVC 10:40 → EDBEDREQTM 10:40 → EDBEDREQ 10:40 → 3WST 12:42 → EDBEDREQTM 12:49 → EDBEDREQSVC 12:49 → EDBEDREQ 12:49 → CANRESERV 13:28 → ENRESERV 13:28 → EDBEDREQSVC 18:10 → CANRESERV 20:11 → ENRESERV 20:11 → EDBEDREQSVC 21:34 → EDBEDREQTM 21:34 → ENRESERV 22:06 → 3WST 23:49
PROVIDERS: ADMIT Internal Medicine; ATTEND Internal Medicine
PROC: 30233K1 Transfusion of Nonautologous Frozen Plasma into Peripheral Vein, Percutaneous Approach (ICD-10-PCS; principal; 2020-03-06)
PROC: 5A1D70Z Performance of Urinary Filtration, Intermittent, Less than 6 Hours Per Day (ICD-10-PCS; 2020-03-07)
DX: T78.3XXA Angioneurotic edema, initial encounter (principal); N18.6 End stage renal disease; I50.33 Acute on chronic diastolic (congestive) heart failure; I13.2 Hypertensive heart and chronic kidney disease with heart failure and with stage 5 chronic kidney disease, or end stage renal disease; Q39.6 Congenital diverticulum of esophagus; J44.9 Chronic obstructive pulmonary disease, unspecified; F32.9 Major depressive disorder, single episode, unspecified; D64.9 Anemia, unspecified; B19.20 Unspecified viral hepatitis C without hepatic coma; K29.70 Gastritis, unspecified, without bleeding; E87.6 Hypokalemia; E11.22 Type 2 diabetes mellitus with diabetic chronic kidney disease; Z53.29 Procedure and treatment not carried out because of patient's decision for other reasons; I27.20 Pulmonary hypertension, unspecified; Z99.2 Dependence on renal dialysis; Z79.899 Other long term (current) drug therapy
CPT/HCPCS: 36415; 36600; 71045; 80053; 82375; 82805; 82962; 83605; 85025; 86850; 86870; 86900; 86927; 93005; 99291; 99292; J1200; J2060; J2543; J2920; J2930; J3480; J3490; J7060; P9017

== ENCOUNTER 2020-03-10 20:47 | Emergency (ER) | payer MEDICARE, MEDICAID ==
[~2020-03-10] VITALS: Ht 165.1 cm; Wt 57.0 kg
[2020-03-10 23:06] LABS: HEMATOCRIT. 31.7 % (36.0-48.0); HEMOGLOBIN. 10.1 g/dL (12.0-16.0); LYMPHOCYTES % 7.1 % (20.0-50.0); MEAN CORPUSCULAR HEMOGLOBIN 30.4 pg (28.0-32.0); MEAN PLATELET VOLUME 7.8 fl (7.4-10.4); MONOCYTES % 5.3 % (2.0-8.0); NEUTROPHILS % 86.6 % (40.0-76.0); PLATELET 356 x1000/uL (130-400); RED BLOOD CELL COUNT 3.34 mill/uL (4.2-5.4); RED CELL DISTRIBUTION WIDTH 18.1 % (11.6-14.6)
[2020-03-11 02:51] VITALS: BP 135/86
== END 2020-03-11 07:35 | disposition home or self-care (01) ==
LOC: ER 20:47
DX: K62.2 Anal prolapse (principal); E11.22 Type 2 diabetes mellitus with diabetic chronic kidney disease; I12.0 Hypertensive chronic kidney disease with stage 5 chronic kidney disease or end stage renal disease; N18.6 End stage renal disease; J44.9 Chronic obstructive pulmonary disease, unspecified; F32.9 Major depressive disorder, single episode, unspecified; Z99.2 Dependence on renal dialysis
CPT/HCPCS: 36415; 80048; 85025; 93005; 99285